=== PATIENT | female | born 1950 | race Caucasian/White ===

== ENCOUNTER 2022-12-12 09:28 | Outpatient (OUT) | payer MEDICARE, OTHER, SELFPAY ==
--- NOTE | 2022-12-12 | XR_ITS ---
The [address] [address] Patient Name: SANDOR DE LA ROSA MRN: [id number] date: 1950 Sex: F Assigned Patient Location: [facility] Current Patient Location: Accession/Order Number: [id number] Exam Date: 12/12/2022 09:38 Report Date: 12/13/2022 07:45 At the request of: YAZAN ZURITA Procedure: XR foot RT min 3V PROCEDURE: XR foot RT min 3V HISTORY: RIGHT FOOT PAIN COMPARISON: XR foot right 07/18/2022 FINDINGS: BONES:Mechanical fusion of first metatarsophalangeal joints and medial midfoot without evidence of hardware fracture or loosening. Prior fifth metatarsal bunionectomy. Calcaneal plantar spurring and flattening of plantar arch. SOFT TISSUES:No visible soft tissue swelling. EFFUSION:None visible. OTHER: Negative. XR/XR foot RT min 3V IMPRESSION: 1. Stable surgical changes and degenerative changes. No appreciable hardware failure. Electronically authenticated by: AISHWARYA STEIN Date: 12/13/2022 07:45
== END 2022-12-12 09:29 | disposition home or self-care (01) ==
LOC: RAD 09:31
PROVIDERS: Visit Provider Podiatrist Foot & Ankle Surgery
DX: M79.671 Pain in right foot (principal)
CPT/HCPCS: 73630

== ENCOUNTER 2023-06-04 09:47 | Outpatient (OUT) | payer MEDICARE, OTHER, SELFPAY ==
--- NOTE | 2023-06-04 | XR_ITS ---
[address] [address] Patient Name: SANDOR DE LA ROSA MRN: [id number] date: 1950 Sex: F Assigned Patient Location: Current Patient Location: Accession/Order Number: [id number] Exam Date: 06/04/2023 10:00 Report Date: 06/04/2023 14:52 At the request of: YAZAN ZURITA Procedure: XR foot RT min 3V PROCEDURE: XR foot RT min 3V COMPARISON: 04/14/2022 HISTORY: RIGHT FOOT PAIN FINDINGS: BONES:Stable fusion the first metatarsal phalangeal joint with a dorsal plate and screws. Shave osteotomy lateral head of fifth metatarsal. Midfoot forefoot fusion with 5 screws. No acute fracture, dislocation or mechanical failure. Stable degenerative changes with joint space narrowing and marginal osteophyte formation. Moderate enthesopathic spurring of the calcaneus at the Achilles and plantar insertions SOFT TISSUES:Negative. No visible soft tissue swelling. EFFUSION:None visible. OTHER: Negative. XR/XR foot RT min 3V IMPRESSION: Stable postsurgical and degenerative changes Electronically authenticated by: BARRETT VASQUEZ Date: 06/04/2023 14:52
--- OUTSIDE RECORDS SUMMARY | 2023-06-04 10:14 | XMS_ITS | CCD ---
Author Organization [facility] Care Team Providers Care Keno Dealer Name Role Phone Antonio Boss Jr. Primary Care Provider Kevon Queen Unavailable Ellyn Cerda Unavailable DO Chaitanya Boss Primary Care Provider GINO Zurita Attending Provider MD Kevon Queen Attending Provider [phone] MD Ra Brown Attending Provider DO Chaitanya Boss Primary Care Provider GINO Zurita Attending Provider [phone] DO Chaitanya Boss Primary Care Provider TELMA Curtis Attending Provider [phone] DO Shaka Watkins Attending Provider DR Josue BOSS Primary Care Unavailable MARIA INES HAND Admitting Unavailable MARIA INES HAND Attending Unavailable CHRISTINA, DR BARRETT Anna Consulting Unavailable MARIA INES HAND Consulting Unavailable KELSI ., DR BRENDAN Bruce Consulting Unavailable KELSI ., DR BRENDAN Bruce Attending Unavailable KELSI ., DR BRENDAN Bruce Admitting Unavailable DR Josue BOSS Primary Care Unavailable EMIL, DR AISHWARYA Dorsey Consulting Unavailable YAZAN ZURITA Consulting Unavailable ASTON .ELENA Consulting Unavailable ELENA CHENEY Consulting Unavailable JUNE BARBER Consulting Unavailable JADEN STORM Consulting Unavailable DR Josue BOSS Primary Care Unavailable YAZAN ZURITA Consulting Unavailable YAZAN ZURITA Attending Unavailable YAZAN ZURITA Admitting Unavailable DR Josue BOSS Primary Care Unavailable YAZAN ZURITA Consulting Unavailable HIGHLANDER, YAZAN Chin Attending Unavailable HIGHLANDER, YAZAN Chin Admitting Unavailable GONZALESAILEEN Consulting Unavailable KAFTAN, DR Josue LEACH Primary Care Unavailable HIGHLANDER, YAZAN Chin Attending Unavailable HIGHLANDER, YAZAN Chin Admitting Unavailable KAFTAN, DR Josue LEACH Primary Care Unavailable PEACE, MARIA INES Attending Unavailable PEACE, MARIA INES Admitting Unavailable ZIEBER, DR AISHWARYA Dorsey Consulting Unavailable PEACE, MARIA INES Consulting Unavailable KAFTAN, DR Josue LEACH Primary Care Unavailable PEACE, MARIA INES Attending Unavailable PEACE, MARIA INES Admitting Unavailable ZIEBER, DR AISHWARYA Dorsey Consulting Unavailable PEACE, MARIA INES Consulting Unavailable KAFTAN, DR Josue LEACH Primary Care Unavailable HIGHLANDER, YAZAN Chin Attending Unavailable HIGHLANDER, YAZAN Chin Admitting Unavailable WEST, DR BARRETT Anna Consulting Unavailable HIGHLANDER, YAZAN Chin Consulting Unavailable ZIEBER, DR AISHWARYA Dorsey Consulting Unavailable KAFTAN, DR Josue LEACH Primary Care Unavailable HIGHLANDER, YAZAN Chin Attending Unavailable HIGHLANDER, YAZAN Chin Admitting Unavailable HIGHLANDER, YAZAN Chin Consulting Unavailable KAFTAN, DR Josue LEACH Primary Care Unavailable HIGHLANDER, YAZAN Chin Consulting Unavailable HIGHLANDER, YAZAN Chin Attending Unavailable HIGHLANDER, YAZAN Chin Admitting Unavailable KAJosue TEJADA Primary Care Physician Bishnu June A Referring Unavailable Brown, Bishnu A Admitting Unavailable Brown, Bishnu A Attending Unavailable Brown, Bishnu A Referring Unavailable Brown, Bishnu A Admitting Unavailable Brown, Bishnu A Attending Unavailable Kaftan Antonio FONTANA Primary Care Provider Antonio Boss DO Unavailable BISHNU JUNE Attending Unavailable BROWN, BISHNU A Referring Unavailable [place] PEQUOT, ANGELITA Flores Attending Unavail able BROWN, BISHNU A Referring Unavailable [place], ANGELITA Flores Attending Unavail able BROWN, BISHNU A Referring Unavailable [place], ANGELITA Flores Attending Unavail able BROWN, BISHNU A Referring Unavailable [place], ANGELITA Flores Attending Unavail able BROWN, BISHNU A Referring Unavailable [place], ANGELITA Flores Attending Unavail able BROWN, BISHNU A Referring Unavailable HAO SAUER Attending Unavailable BROWN, BISHNU A Referring Unavailable [place]OT, ANGELITA Flores Attending Unavail able BROWN, BISHNU A Referring Unavailable BROWN, BISHNU A Referring Unavailable BROWN, BISHNU A Attending Unavailable [place]QUOT, ANGELITA Flores Attending Unavail able BROWN, BISHNU A Referring Unavailable [place]OT, ANGELITA L Attending Unavail able BROWN, BISHNU A Referring Unavailable [place]OT, ANGELITA L Attending Unavail able BROWN, BISHNU A Referring Unavailable BROWN, BISHNU A Attending Unavailable [place]OT, ANGELITA L Attending Unavail able BROWN, BISHNU A Referring Unavailable [place]OT, ANGELITA L Attending Unavail able BROWN, BISHNU A Referring Unavailable [place]OT, ANGELITA L Attending Unavail able BROWN, BISHNU A Referring Unavailable [place]OT, ANGELITA L Attending Unavail able BROWN, BISHNU A Referring Unavailable [place]OT, ANGELITA L Attending Unavail able BROWN, BISHNU A Referring Unavailable [place]OT, ANGELITA L Attending Unavail able BROWN, BISHNU A Referring Unavailable [place]QUOT, ANGELITA L Attending Unavail able BROWN, BISHNU A Referring Unavailable VISCI, SHAKA A Attending Unavailable BROWN, BISHNU A Referring Unavailable BROWN, BISHNU A Attending Unavailable BROWN, BISHNU A Referring Unavailable Chaitanya Boss Primary Care Unavailable Visci, Shaka Attending Unavailable Visci, Shaka Admitting Unavailable Allergies Allergy Classification Reported Allergen(s) Allergy Type Date of Onset Reaction(s) Facility (15 sources) Adhesive agent; Translations: [Adhesive] Propensity to adverse reactions 1 Unknown, Unknown Reaction [facility] (8 sources) Penicillin Drug Allergy Unknown [employer] Other (12 sources) Penicillins; Translations: [penicillins] Allergy to substance 2 Unknown (qualifier value), Unknown [facility] (1 source) Penicillin Drug Allergy [facility] (2 sources) Adhesive bandage; Translations: [Adhesive Bandage] Drug allergy rash [facility] (4 sources) Wound Dressing Adhesive Drug Allergy 2 Unknown [facility] Medications Current Medications Medication Drug Class(es) Dates Sig (Normalized) Sig (Original) 5-HT 100mg (1 source) Start: 06-07-2015 take 5 tablets by mouth once daily 5-HT 100mg 5-HT 100mg, 1 tab, Oral, Daily Start Date: 06/07/15 Status: Ordered Aleve Caplet 220 mg oral tablet (1 source) Start: 06-07-2015 take 1 tablet by mouth every eight hours as needed for pain Alezhang Caplet 220 mg oral tablet 220 mg = 1 tab(s), Oral, q8hr, PRN as needed for inflammation, Refills(s) 0, Pain Start Date: 06/07/15 Status: Ordered ascorbic acid 500 mg oral tablet (12 sources) Vitamin C Start: 11-07-2021 take 2 tablets by mouth once daily Ascorbic Acid (Vitamin C) (Vitamin C) 500 mg Tablet Active 1000 MG PO Daily November 07, 2021 12:00am Vitamin C Active busPIRone hydrochloride 15 mg oral tablet (20 sources) Start: 12-07-2020 take 1 tablet by mouth twice daily busPIRone 15 mg Tab 15 mg = 1 tab(s), Oral, BID, Refills(s) 0, Depression Start Date: 01/17/23 Status: Ordered Start: 08-20-2018 take 15 mg by mouth twice randell y Buspirone Active 15 MG PO Twice daily August 20, 2018 12:00am Start: 08-18-2018 take 1 tablet by drew th every eight hours busPIRone HCl 5 MG 1 tablet Orally Three times a day for 90 days Aug, Active Calcium (5 sources) Phosphate Binder, Calcium Start: 12-22-2020 take 1200 mg by mouth once daily Calcium Active 1200 MG PO Daily December 22, 2020 12:00am Start: 12-22-2020 take 600 mg by mouth once randell y Calcium Active 600 MG PO Daily December 22, 2020 12:00am celecoxib 100 mg oral capsule (4 sources) Nonsteroidal Anti-inflammatory Drug Start: 03-11-2023 End: 06-09-2023 take 1 capsule by mouth in the morning for pain celecoxib (CeleBREX) 100 MG capsule Indications: Status post knee replacement, unspecified laterality Take 1 capsule (100 mg) by mouth in the morning and 1 capsule (100 mg) before bedtime. Take as needed for pain. 60 capsule 2 03/11/2023 06/09/2023 Active Chondroitin Sulfates / Glucosamine (2 sources) Start: 06-07-2015 take 1 tablet by mouth twice daily Chondroitin-Gluco samine oral tablet 1 tab, Oral, BID, Refill(s) 0, Inflammation Start Date: 06/07/15 Status: Ordered Start: 11-14-2010 End: 04-17-2013 Aowr-Leak-DTV#[id number]-B or (OSTEO BI-FLEX) 750-625-30 mg ORAL Tab Take by mouth. 0 11/14/2010 04/17/2013 Discontinued (Changing Therapy/Dosage Form) Comment on above: Take by mouth. famotidine 20 mg oral tablet (20 sources) Histamine-2 Receptor Antagonist Start: 03-18-2023 famotidine (Pepcid) 20 MG tablet Indications: Gastroesophageal reflux disease with esophagitis without hemorrhage TAKE 1 TABLET TWICE A DAY 180 tablet 3 03/18/2023 Active Start: 01-17-2023 take 1 tablet by drew th twice daily famotidine 20 mg Tab 20 mg = 1 tab(s), Oral, BID, Refills(s) 0, Control of stomach acid Start Date: 01/17/23 Status: Ordered Start: 04-16-2019 take 20 mg by mouth twice randell y Famotidine Active 20 MG PO Twice daily April 16, 2019 1:00am Start: 04-16-2019 Famotidine Act rosendo 20 MG PO As Directed April 16, 2019 1:00am Start: 12-01-2016 End: 02-17-2018 take 20 mg by mouth once daily Famotidine Discontinued 20 MG PO Daily December 01, 2016 12:00am February 17, 2018 5:41pm gabapentin 300 mg oral capsule (7 sources) Anti-epileptic Agent Start: 02-25-2023 take 1 capsule by mouth at bedtime gabapentin (Neurontin) 300 MG capsule Indications: Status post total knee replacement, unspecified laterality Take 1 capsule (300 mg) by mouth at bedtime 30 capsule 0 03/21/2023 Active Ginkgo-Choline Bitartrate (Brainstrong Memory Support) 120 mg- 110 mg Tablet (4 sources) Start: 11-07-2021 take 1 tablet by mouth once daily Ginkgo-Choline Bitartrate (Brainstrong Memory Support) 120 mg- 110 mg Tablet Active 1 TAB PO Daily November 07, 2021 12:00am glucosamine sulfate 500 mg oral tablet (6 sources) Start: 12-01-2016 take 3 tablets by mouth once daily in the morning Glucosamine Sulfate (Glucosamine) 500 mg Tablet Active 1500 MG PO Every morning December 01, 2016 12:00am Start: 04-17-2013 take 2 capsules by m outh twice daily Glucosamine Sulfate 1,000 mg cap Take 2 capsules by mouth twice daily. 0 04/17/2013 Active Comment on above: Take 2 capsules by m outh twice daily. Glucosamine Chond Complex/MSM - (8 sources) Glucosamine Evangelista d Complex/MSM - as directed Orally Active 12 hr guaiFENesin 600 mg extended release oral tablet (5 sources) Start: 04-04-2018 take 1 tablet by mouth every twelve hours, then take 1 tablet by mouth every twelve hours Guaifenesin (Mucinex) 600 mg Tablet Extended Release 12hr Active 600 MG PO Q12H April 04, 2018 1:00am melatonin 5 mg oral tablet (2 sources) Start: 01-17-2023 take 1 tablet by mouth once daily at bedtime as needed melatonin 5 mg oral tablet 5 mg = 1 tab(s), Oral, Once a day (at bedtime), PRN for insomnia, # 60 tab(s), Refills(s) 0 Start Date: 01/17/23 Status: Ordered End: 05-30-2012 take 1 tablet by mouth once daily at bedtime melatonin 3 mg ORAL Tab Take 3 mg by mouth daily at bedtime. 0 05/30/2012 Discontinued (Course of therapy completed) Comment on above: Take 3 mg by mouth d aily at bedtime. meloxicam 15 mg oral tablet (20 sources) Nonsteroidal Anti-inflammatory Drug Start: 10-23-2019 take 15 mg by mouth once daily Meloxicam Active 15 MG PO Daily October 23, 2019 12:00am Start: 04-17-2013 End: 05-01-2019 take 15 mg by mouth once daily in the morning Meloxicam Discontinued 15 MG PO Every morning March 04, 2018 1:00am May 01, 2019 7:46am Start: 11-14-2010 End: 04-17-2013 take 1 tablet by mouth once daily meloxicam (MOBIC) 7.5 mg ORAL tablet Take 1 tablet by mouth once daily. 0 11/14/2010 04/17/2013 Discontinued (Changing Therapy/Dosage Form) Comment on above: Take 1 tablet by drew th once daily. Multivitamin Adult - (8 sources) Multivitamin Josué lt - as directed Orally Active Multivitamin preparation (5 sources) Start: 12-02-19 take 1 tablet by mouth once daily in the morning Multivitamin Active 1 TAB PO Every morning December 01, 2016 12:00am Multivitamins and Minerals (1 source) Start: 06-07-19 take 1 tablet by mouth once daily Multivitamins and Minerals 1 tab, Oral, Daily, Refill(s) 0, Prophylaxis Start Date: 06/07/15 Status: Ordered 24 hr oxybutynin chloride 15 mg extended release oral tablet (12 sources) Cholinergic Muscarinic Antagonist Start: 03-07-19 oxybutynin XL (Ditropan-XL) 15 MG 24 hr tablet Indications: OAB (overactive bladder) TAKE 1 TABLET DAILY 90 tablet 0 03/07/2023 Active Start: 11-14-2010 End: 11-07-2021 take 1 tablet by mouth once daily oxybutynin 15 mg ER Tab 15 mg = 1 tab(s), Oral, Daily, Refills(s) 0, Bladder problems Start Date: 06/07/15 Status: Ordered Comment on above: Take 1 tablet by drew once daily. traMADol hydrochloride 50 mg oral tablet (1 source) Opioid Agonist Start: 01-17-2023 take 1 tablet by mouth every six hours as needed for pain traMADOL 50 mg Tab 50 mg = 1 tab(s), Oral, q6hr, PRN as needed for pain, Refills(s) 0 Start Date: 01/17/23 Status: Ordered Vitamin D3 (1 source) Start: 06-07-2015 take 3000 [IU] by mouth once daily Vitamin D3 3,000 unit(s), Oral, Daily, Refills(s) 0, Prophylaxis Start Date: 06/07/15 Status: Ordered Zinc (13 sources) Start: 11-07-2021 take 50 mg by mouth once daily Zinc Active 50 MG PO Daily November 07, 2021 12:00am zinc 50 MG table t 1 (one) time each day at the same time. 0 Active Zinc Active zinc gluconate 50 mg oral tablet (1 source) Start: 01-17-2023 zinc gluconate 50 mg oral tablet See Instructions, Refills(s) 0, Prophylaxis Start Date: 01/17/23 Status: Ordered Completed/Discontinued Medications Medication Drug Class(es) Dates Sig (Normalized) Sig (Original) 5-hydroxytryptophan 100 mg oral capsule (5 sources) Start: 06-09-2018 End: 10-17-2018 take 5 capsules by mouth once daily in the morning 5-Hydroxytryptopha n (5-Htp) (5-Htp) 100 mg Capsule Discontinued 1 TAB PO Every morning June 09, 2018 12:00am October 17, 2018 1:27pm 5hpt (5 sources) Start: 12-01-2016 End: 03-04-2018 take 1 tablet by mouth once daily 5hpt Discontinued 1 TAB PO Daily December 01, 2016 12:00am March 04, 2018 11:42am acetaminophen 325 mg oral capsule (5 sources) Start: 05-29-2018 End: 11-04-2018 Acetaminophen (Tylenol) 325 mg Capsule Discontinued 500 MG PO Q6H May 29, 2018 12:00am November 04, 2018 12:17pm acetaminophen 500 mg / caffeine 65 mg disintegrating oral tablet (2 sources) Central Nervous System Stimulant, Methylxanthine Start: 11-14-2010 Acetaminophen-Caff eine (EXCEDRIN) 500-65 mg ORAL TbDL Take by mouth. 0 11/14/2010 Active Comment on above: Take by mouth. acetaminophen 325 mg / HYDROcodone bitartrate 5 mg oral tablet (1 source) Opioid Agonist Start: 01-23-2013 End: 05-31-2014 take 1 tablet by mouth every six hours as needed HYDROcodone-acetam inophen 5-325 mg per tablet Take 1 tablet by mouth every 6 hours as needed. 80 tablet 0 01/23/2013 05/31/2014 Discontinued (Course of therapy completed) Comment on above: Take 1 tablet by drew every 6 hours as needed. acetaminophen 325 mg / oxyCODONE hydrochloride 5 mg oral tablet (13 sources) Opioid Agonist Start: 05-01-2019 End: 10-28-2019 take 1-2 tablets by mouth every six hours as needed for pain Oxycodone-Acetamin ophen (Percocet) 5-325 mg tablet Discontinued 1 TAB PO Q6H 07 07May 01, 2019 October 28, 2019 8:06am May take 1-2 tabs q 6 hours prn pain Start: 08-26-2018 End: 10-17-2018 take 1-2 tablets by mouth every six hours as needed for pain Oxycodone-Acetaminophen (Percocet) 5-325 mg tablet Discontinued 1 - 2 TAB PO Q6H 10 2 August 26, 2018 October 17, 2018 1:28pm May take 1-2 tabs q 6 hours prn pain Start: 05-01-2013 End: 05-31-2014 take 1-2 tablets by mouth every six hours as needed oxyCODONE-acetaminophen (PERCOCET) 5-325 mg tablet Take 1-2 tablets by mouth every 6 hours as needed. 90 tablet 0 05/01/2013 05/31/2014 Discontinued (Course of therapy completed) Start: 04-23-2013 End: 05-01-2013 take 1-2 tablets by mouth every four hours as needed oxyCODONE-acetaminophen (PERCOCET) 5-325 mg tablet Take 1-2 tablets by mouth every 4 hours as needed. 50 tablet 0 04/23/2013 05/01/2013 Discontinued Start: 04-05-2011 End: 04-27-2011 take 1 tablet by mouth every four hours as needed oxyCODONE-acetaminophen (PERCOCET) 5-325 mg ORAL tablet Take 1 tablet by mouth every 4 hours as needed. for pain. 90 tablet 0 04/05/2011 04/27/2011 Discontinued (Course of therapy completed) Comment on above: Take 1 tablet by drew th every 4 hours as needed. for pain. Take 1-2 tablets by mouth every 4 hours as needed. Take 1-2 tablets by mouth every 6 hours as needed. acetaminophen 325 mg / traMADol hydrochloride 37.5 mg oral tablet (1 source) Opioid Agonist End: 05-31-19 13 take 1 tablet by mouth every six hours as needed tramadol-acetaminoph en 37.5-325 mg ORAL per tablet Take 1 tablet by mouth every 6 hours as needed. 0 05/30/2012 Discontinued (Discontinued by Patient) Comment on above: Take 1 tablet by drew th every 6 hours as needed. aspirin 325 mg oral tablet (2 sources) Platelet Aggregation Inhibitor, Nonsteroidal Anti-inflammatory Drug Start: 04-24-19 14 End: 05-15-19 14 take 1 tablet by mouth once daily aspirin 325 mg tablet Take 1 tablet by mouth once daily for 21 days. 21 tablet 0 04/23/2013 05/14/2013 Start: 04-05-2011 End: 05-30-2012 take 1 tablet by mouth every twelve hours aspirin 325 mg ORAL tablet Take 1 tablet by mouth every 12 hours. 60 tablet 0 04/05/2011 05/30/2012 Discontinued (Course of therapy completed) Comment on above: Take 1 tablet by drew th every 12 hours. Take 1 tablet by drew th once daily for 21 days. BIOFLAV/MV-MN/SOYB/EVEP R/HRB32 (WOMENS MENOPAUSE JOYCE BLAIRE ORAL) (2 sources) BIOFLAV/MV-MN/SO YB/MIR ME/HRB32 (WOMENS MENOPAUSE JOYCE BLAIRE ORAL) Take by mouth once daily. 0 Active Comment on above: Take by mouth once d aily. cetirizine hydrochloride 10 mg oral tablet (1 source) Histamine-1 Receptor Antagonist Start: 04-17-19 14 End: 06-01-19 15 take 1 tablet by mouth once daily cetirizine 10 mg tablet Take 1 tablet by mouth once daily. 0 04/17/2013 05/31/2014 Discontinued (Course of therapy completed) Comment on above: Take 1 tablet by drew th once daily. choline salicylate 293 mg / magnesium salicylate 362 mg oral tablet (1 source) Start: 11-15-19 11 End: 04-17-19 14 take 1 tablet by mouth twice daily choline magnesium trisalicylate 500 mg ORAL tablet Take 1 tablet by mouth twice daily. 0 11/14/2010 04/17/2013 Discontinued (Discontinued by Patient) Comment on above: Take 1 tablet by drew th twice daily. Cognitum (5 sources) Start: 06-10-19 19 End: 08-16-19 19 take 1 tablet by mouth once daily Cognitum Discontinued 1 TAB PO Daily June 09, 2018 12:00am August 15, 2018 10:05am Cognium (5 sources) Start: 08-16-19 19 End: 11-05-19 19 take 1 tablet by mouth twice daily Cognium Discontinued 1 TAB PO Twice daily August 15, 2018 12:00am November 04, 2018 12:17pm COMPOUNDED PRESCRIPTION (1 source) Start: 04-17-19 14 take 1 tablet by mouth three times daily COMPOUNDED PRESCRIPTION Take 1 tablet by mouth three times daily. Focus Factor (for memory and concentration) 0 04/17/2013 Active Comment on above: Take 1 tablet by drew th three times daily. Focus Factor (for memory and concentration) diphenhydrAMINE hydrochloride 25 mg oral tablet (5 sources) Histamine-1 Receptor Antagonist Start: 12-02-19 17 End: 10-18-19 19 take 1 tablet by mouth every eight hours Diphenhydramine Hcl (Benadryl Allergy) 25 mg Tablet Discontinued 25 MG PO Q8H December 01, 2016 12:00am October 17, 2018 1:27pm docusate sodium 100 mg oral capsule (2 sources) Start: 04-17-19 14 End: 06-01-19 15 take 1 capsule by mouth twice daily docusate sodium (COLACE) 100 mg capsule Take 1 capsule by mouth twice daily. 0 04/17/2013 05/31/2014 Discontinued (Course of therapy completed) Start: 04-05-2011 End: 05-30-2012 take 1 capsule by mouth twice daily docusate sodium (COLACE) 100 mg ORAL capsule Take 1 capsule by mouth twice daily. 60 capsule 0 04/05/2011 05/30/2012 Discontinued (Course of therapy completed) Comment on above: Take 1 capsule by mo uth twice daily. estrogens, conjugated (long-term) 0.625 mg/ml vaginal cream (5 sources) Estrogen Start: 04-16-19 End: 05-05-19 21 Conjugated Estrogens Discontinued 0.625 MG VAGINAL Twice a Week April 16, 2019 1:00am May 04, 2020 10:14am Fish Oil-DHA-EPA (FISH OIL) 1,200-144-216 mg ORAL Cap (1 source) Start: 11-15-19 11 End: 04-17-19 14 Fish Oil-DHA-EPA (FISH OIL) 1,200-144-216 mg ORAL Cap Take 1 capsule by mouth once daily. 0 11/14/2010 04/17/2013 Discontinued (Discontinued by Patient) Comment on above: Take 1 capsule by mo ut once daily. ibuprofen 600 mg oral tablet (5 sources) Nonsteroidal Anti-inflammatory Drug Start: 05-01-19 End: 10-28-19 20 Ibuprofen Discontinued 600 MG PO Every 6 hours May 01, 2019 12:00am October 28, 2019 8:07am do not exceed 4 doses in a 24 hour period lansoprazole 30 mg delayed release oral capsule (5 sources) Proton Pump Inhibitor Start: 04-30-19 19 End: 05-05-19 21 take 1 tablet by mouth twice daily Lansoprazole Discontinued 1 TAB PO Twice daily April 29, 2018 12:00am March 17th, 2021 10:15am linseed oil 1000 mg oral capsule (1 source) Start: 04-17-19 14 End: 06-01-19 take 1 capsule by mouth once daily Flaxseed Oil 1,000 mg cap Take 1 capsule by mouth once daily. 0 04/17/2013 05/31/2014 Discontinued (Course of therapy completed) Comment on above: Take 1 capsule by mo [facility] once daily. Miscellaneous Medical Supply (5 sources) Start: 04-16-19 End: 11-08-19 Miscellaneous Medical Supply Discontinued 1000 MG MISCELLANE Every morning April 16, 2019 1:00am November 07, 2021 7:17am Start: 04-16-2019 Miscellaneous Medical Supply Active 1000 MG MISCELLANE Every morning April 16, 2019 1:00am multivitamin ORAL tablet (2 sources) Start: 11-14-2010 take 1 tablet by mouth once daily multivitamin ORAL tablet Take 1 tablet by mouth once daily. 0 11/14/2010 Active Comment on above: Take 1 tablet by [facility] once daily. Mv,Ca,Gux-Bq-Huetij No.157 (Menopause Supplement) 400 mcg Tablet (10 sources) Start: 06-09-2018 End: 11-04-2018 take 1 tablet by mouth once daily Mv,Ca,Kxm-Gq-Vubukz No.157 (Menopause Supplement) 400 mcg Tablet Discontinued 1 TAB PO Daily June 09, 2018 12:00am November 04, 2018 12:17pm Start: 12-01-2016 End: 03-04-2018 take 1 tablet by mouth once daily Mv,Ca,Eaz-Ec-Wxhsmj No.157 (Menopause Supplement) 400 mcg Tablet Discontinued 1 TAB PO Daily December 01, 2016 12:00am March 04, 2018 11:42am MV,Ca,Xqd-JH-Fgiipx No.159 (ESTROVEN REGULAR STRENGTH) 400 mcg ORAL Tab (2 sources) Start: 11-14-2010 MV,Ca,Nsy-WB-Qdfghh No.159 (ESTROVEN REGULAR STRENGTH) 400 mcg ORAL Tab Take by mouth. 0 11/14/2010 Active Comment on above: Take by mouth. naproxen 500 mg oral tablet (10 sources) Nonsteroidal Anti-inflammator y Drug Start: 04-04-2018 End: 05-29-2018 take 500 mg by mouth every twelve hours Naproxen Discontinued 500 MG PO Q12H April 04, 2018 1:00am May 29, 2018 2:00pm Start: 03-04-2018 End: 03-14-2018 take 1 tablet by mouth twice daily Naproxen Discontinued 1 TAB PO Twice daily March 04, 2018 1:00am March 14, 2018 11:07am 12 hr oxyCODONE hydrochloride 10 mg extended release oral tablet (2 sources) Opioid Agonist Start: 04-23-2013 End: 05-03-2013 take 1 tablet by mouth every twelve hours oxyCODONE ER (OXYCONTIN) 10 mg Tb12 Take 1 tablet by mouth every 12 hours for 10 days. 20 tablet 0 04/23/2013 05/03/2013 Start: 04-05-2011 End: 04-27-2011 take 1 tablet by mouth twice daily for pain oxyCODONE ER (OXYCONTIN) 10 mg ORAL Tb12 Take 1 tablet by mouth twice daily. for pain. 30 tablet 0 04/05/2011 04/27/2011 Discontinued (Course of therapy completed) Comment on above: Take 1 tablet by drew th twice daily. for pain. Take 1 tablet by drew th every 12 hours for 10 days. pantoprazole 40 mg delayed release oral tablet (1 source) Proton Pump Inhibitor Start: 4 take 1 tablet by mouth once daily PANTOPRAZOLE 40 mg tablet Take 1 tablet by mouth once daily. 0 03/20/2013 Active Comment on above: Take 1 tablet by drew th once daily. predniSONE 10 mg oral tablet (5 sources) Start: 8 End: 9 take 30 mg by mouth twice daily Prednisone Discontinued 30 MG PO Twice daily 17 07February 17, 2018 1:00am February 22, 2018 1:02am raNITIdine 300 mg oral capsule (11 sources) Histamine-2 Receptor Antagonist Start: 9 End: 0 take 300 mg by mouth once daily at bedtime Ranitidine Hcl Discontinued 300 MG PO Daily at bedtime May 27, 2018 12:00am April 16, 2019 11:21am Start: 12-01-2016 End: 05-27-2018 take 150 mg by mouth once daily at bedtime Ranitidine Hcl Discontinued 150 MG PO Daily at bedtime December 01, 2016 12:00am May 27, 2018 2:19pm Start: 01-31-2013 take 1 tablet by drew th once daily at bedtime RANITIDINE HCL 300 mg tablet Take 1 tablet by mouth daily at bedtime. 0 01/31/2013 Active Comment on above: Take 1 tablet by drew th daily at bedtime. sulfamethoxazole 800 mg / trimethoprim 160 mg oral tablet (5 sources) Dihydrofolate Reductase Inhibitor Antibacterial, Sulfonamide Antimicrobial Start: 019 End: 019 take 1 tablet by mouth twice daily Sulfamethoxazole-Tr imethoprim (Bactrim Ds) 800-160 mg tablet Discontinued 1 TAB PO Twice daily 14 August 26, 2018 12:00am October 17, 2018 1:28pm Triamcinolone (4 sources) Corticosteroid Start: Kenalog -40 mg Sep, 40 mg Problems Active Problems Problem Classification Problem Date Documented Da te Episodic/Chronic Abdominal hernia (7 sources) Hiatal hernia; Translations: [Diaphragmatic hernia without obstruction or gangrene] Onset: 2 Resolved: 2 Episodic Acquired foot deformities (2 sources) Hallux valgus (acquired), right foot; Translations: [Other hammer toe(s) (acquired), right foot] Onset: 2 Chronic Digestive congenital anomalies (7 sources) Terminal esophageal web; Translations: [Esophageal web] Onset: 2 Resolved: 2 Chronic Disorders of lipid metabolism (5 sources) Hyperlipidemia, unspecified; Translations: [Mixed hyperlipidemia] Onset: 2 07-10-2022 Chronic Esophageal disorders (20 sources) Gastroesophageal reflux disease; Translations: [Gastro-esophageal reflux disease without esophagitis] Onset: 4 Resolved: 2 04-17-2013 Chronic Genitourinary symptoms and ill-defined conditions (16 sources) Urinary incontinence; Translations: [Unspecified urinary incontinence] Onset: 4 04-17-2013 Chronic Gout and other crystal arthropathies (4 sources) Chondrocalcinosis of joint of right knee; Translations: [Other chondrocalcinosis, right knee] Onset: 3 07-20-2022 Chronic Immunizations and screening for infectious disease (2 sources) Encounter for immunization Onset: 1 Resolved: 1 Episodic Osteoarthritis (20 sources) Osteoarthritis of foot joint; Translations: [Primary osteoarthritis, unspecified ankle and foot] Onset: 2 03-23-2011 Chronic Other connective tissue disease (2 sources) History of total knee arthroplasty; Translations: [Presence of right artificial knee joint] 04-01-2023 Chronic Other connective tissue disease (1 source) Impingement syndrome of shoulder region 06-07-2015 Episodic Other diseases of bladder and urethra (1 source) Bladder muscle dysfunction - overactive 06-07-2015 Chronic Other gastrointestinal disorders (4 sources) Dysphagia, unspecified Onset: 2 Resolved: 2 Episodic Other nervous system disorders (12 sources) Chronic pain; Translations: [Other chronic pain] Onset: 3 07-10-2022 Chronic Other non-traumatic joint disorders (5 sources) Pain in right knee; Translations: [Right knee pain] 12-01-2016 Episodic Other screening for suspected conditions (not mental disorders or infectious disease) (1 source) Encounter for screening mammogram for malignant neoplasm of breast; Translations: [Encounter for screening mammogram for malignant neoplasm of breast] Onset: 4 Episodic Other upper respiratory disease (4 sources) Allergic rhinitis; Translations: [Allergic rhinitis, unspecified] Onset: 3 07-10-2022 Chronic Other upper respiratory infections (4 sources) Chronic sinusitis; Translations: [Chronic sinusitis, unspecified] Onset: 3 07-10-2022 Chronic Poisoning by nonmedicinal substances (5 sources) Wasp sting; Translations: [Toxic effect of venom of wasps, accidental (unintentional), initial encounter] 10-17-2018 Episodic Prolapse of female genital organs (18 sources) Third degree uterine prolapse; Translations: [Complete uterovaginal prolapse] Onset: 3 05-01-2019 Chronic Residual codes; unclassified (1 source) Menopause present 06-07-2015 Episodic Spondylosis; intervertebral disc disorders; other back problems (20 sources) Solitary sacroiliitis; Translations: [Sacroiliitis, not elsewhere classified] Chronic Thyroid disorders (6 sources) Hypothyroidism; Translations: [Hypothyroidism, unspecified] Onset: 4 04-17-2013 Chronic Unclassified (1 source) CONTACT W/AND (SUSP) EXPOS COVID-19; Translations: [CONTACT W/AND (SUSP) EXPOS COVID-19] Onset: 2 Past or Other Problems Problem Classification Problem Date Documented Da te Episodic/Chronic Acquired foot deformities (3 sources) Other acquired deformities of right foot; Translations: [Other deformities of toe(s) (acquired), right foot] Onset: 12-25-2021 Episodic Cardiac dysrhythmias (6 sources) Bradycardia; Translations: [Bradycardia, unspecified] Onset: 04-17-2013 04-17-2013 Episodic Malaise and fatigue (4 sources) Fatigue; Translations: [Other fatigue] Onset: 07-10-2022 07-10-2022 Episodic Menopausal disorders (4 sources) Atrophic vaginitis; Translations: [Postmenopausal atrophic vaginitis] Onset: 07-10-2022 Resolved: 08-31-2022 08-31-2022 Chronic Other acquired deformities (1 source) Other specified acquired deformities of right lower leg; Translations: [OTH SPEC ACQ DEFORMITIES RT LOW LEG] Onset: 12-25-2021 Episodic Other aftercare (1 source) Other chcf (current) drug therapy; Translations: [OTH POTTERY DECORATOR CURRENT DRUG THERAPY] Onset: 12-25-2021 Episodic Other circulatory disease (4 sources) Clearing throat - hawking; Translations: [Other specified symptoms and signs involving the circulatory and respiratory systems] Onset: 07-10-2022 07-10-2022 Episodic Other connective tissue disease (5 sources) Pain in right foot; Translations: [PAIN IN RIGHT FOOT] Onset: 12-25-2021 Episodic Other connective tissue disease (1 source) Arthrodesis status; Translations: [ARTHRODESIS STATUS] Onset: 03-01-2022 Episodic Other female genital disorders (4 sources) Pain in female genitalia on intercourse; Translations: [Unspecified dyspareunia] Onset: 07-10-2022 Resolved: 08-31-2022 08-31-2022 Chronic Other female genital disorders (4 sources) Stenosis of vagina; 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 [place] [address] Mammography Report Signed Patient: Chely De La Rosa MR#: [id number] : 1950 Acct:[id number] Age/Sex: 73 / F ADM Date: 05/17/23 Loc: [place] Room: Type: [facility] Attending Dr: Shaka Watkins DO Copies to: Josue Boss Jr, DO Shaka Watkins DO Ordering Provider: Shaka Watkins DO Date of Service: 05/17/23 MM/MM screening mammo BI w/CAD: SCREENING CLINICAL DATA: Screening for malignancy. BILATERAL SCREENING MAMMOGRAMS - FULL FIELD DIGITAL WITH TOMOSYNTHESIS AND CAD Tomosynthesis craniocaudal and mediolateral oblique views of both breasts were obtained using low- dose digital technique. Comparison is made to prior studies from April 06, 2020 through May 11, 2022. This examination was reviewed with the aid of CAD. There are scattered fibroglandular densities. A few benign and vascular calcifications are present. There are no developing masses, typically malignant calcifications or architectural distortion. There has been no significant interval change. MM/MM screening mammo BI w/CAD IMPRESSION: NO MAMMOGRAPHIC EVIDENCE OF MALIGNANCY. ROUTINE FOLLOW-UP IS RECOMMENDED IN ONE YEAR. RESULT CODE: 2 Benign Findings(s) DENSITY CODE: 2 (approximately 25-50% glandular) FOLLOW UP: 1YR The false-negative rate of mammography is approximately 10-percent. Management of a palpable abnormality must be based on clinical grounds. Patient was entered into a reminder system with a target due date for the next mammogram. Impression dictated by: Erica Pérez M.D.05/17/2023 3:05 PM Dictation Location: [facility] Transcribed By: CHASE 05/17/23 [id number] Dictated By: Erica Pérez MD 05/17/23 1440 Signed By: 05/17/23 1505 Normal [facility] IntraOperative Documentson 1 04-17-2022 IntraOperative Documents [id number] Normal [facility] Main OR Intraoperative Recor don 02-01-2023 Main OR Intraoperative Record IntraOp Document Type FT Summary Primary Physician: Bishnu June DO Finalized Date/Time: 02/01/23 12:54:21 Pt. Name: JENNIFER DE LA ROSAHUMAIRA Aragon/Sex: 1950 Female Med Rec #: [id number] Physician: Bishnu June DO Financial #: [id number] Pt. Type: A Room/Bed: [place] [address] Admit/Disch: 01/30/23 05:59:51 - 01/31/23 10:50:00 Institution: Case Times FT Entry 1 Patient Times In Room 01/30/23 08:54:00 Out Room 01/30/23 10:48:00 Procedure Times Start 01/30/23 09:31:00 Stop 01/30/23 10:38:00 Anesthesia Times Start 01/30/23 08:54:00 Stop 01/30/23 10:48:00 Block Timeout w01/30/23 08:16:00 Anesthesia Last Modified By: Juana Leal CST 02/01/23 12:54:18 General Comments: BLOCK DONE BY DR. SANTOS AT 0816, ASSISTED BY DR. SANTOS, HR= 72BPM, O2= 99% ON ROOM AIR; SPINAL DONE BY Rachana JEFFREY CRNA AT 0905 -Prateek HALEY RN 02/01/23 Chart opened to review and send charges LRoth CSFA Case Attendance FT Entry 1 Entry 2 Entry 3 Case Attendee Rachele MONTES, Bishnu Jacobsen DO, Jeff D Role Performed SEASONAL PACKAGE HANDLER Surgeon - Primary QUALITY CONTROL HEAD/SA Time In 01/30/23 08:54:00 01/30/23 08:54:00 01/30/23 08:54:00 Time Out 01/30/23 10:48:00 01/30/23 10:33:00 01/30/23 10:48:00 Procedure KNEE TOTAL ROBOT KNEE TOTAL ROBOT KNEE TOTAL ROBOT ARTHROPLASTY(Right) ARTHROPLASTY(Right) ARTHROPLASTY(Right) Comments Last Modified By: Catherine HALEY, Es Haley RN, sE Haley RN, Es James P 01/30/23 Erika P 01/30/23 Erika P 01/30/23 10:47:55 10:52:29 10:47:55 Entry 4 Entry 5 Entry 6 Case Attendee Catherine HALEY, Jarrod Szymanski CST, Maria Ines Xiao Role Performed Analysis Reporting Developer - Primary Scrub - Primary Staff - Other Time In 01/30/23 08:54:00 01/30/23 08:54:00 01/30/23 08:54:00 Time Out 01/30/23 10:48:00 01/30/23 10:29:00 01/30/23 10:48:00 Procedure KNEE TOTAL ROBOT KNEE TOTAL ROBOT KNEE TOTAL ROBOT ARTHROPLASTY(Right) ARTHROPLASTY(Right) ARTHROPLASTY(Right) Comments 2ND SCRUB Last Modified By: Catherine HALEY, Es Haley RN, Es Haley RN, Es James P 01/30/23 Erika P 01/30/23 Erika P 01/30/23 10:47:55 10:52:29 10:47:55 General Comments: EMILY MARTÍNEZ FOR CASE -VNehemiah HALEY RNpotato inspector Protocols FT Pre-Care Text: Implements protective measures prior to operative or invasive procedure, confirms identity before the operative or invasive procedure, verifies operative procedure, surgical site, and laterality Entry 1 Procedure(s) KNEE TOTAL ROBOT Patient Identity Birthday, Blood Band, ARTHROPLASTY(Right) Verified (select at ID Band Check, Patient least 2): Participation Consents / H and P Anesthesia Consent, Operative Site Present Verified HandP, Surgery/Procedure Marking Verified Consent, Transfusion Consent Surgical Site Yes Laterality Verified Yes Verified Procedure Verified Yes Correct Patient Yes Position Verified Availability Equipment, Implant, Prep Dry n/a Verified (If Medication Applicable) PreOp Antibiotic Yes Time Out Bishnu June DO, Given Participants Akanksha Jeffrey CRNA, Mohr, Jeff D, Catherine HALEY, Es Xiao, Jarrod Billings McClain CST, Maria Ines Claudio Time Out Complete 01/30/23 09:31:00 Outcomes Met? Yes Last Modified By: Es Haley RN 01/30/23 09:49:07 Post-Care Text: The patient is free from signs and symptoms of injury caused by extraneous objects Allergy Information FT Pre-Care Text: Verifies allergies Entry 1 Allergies Reviewed? Yes Allergies Reviewed Self/Patient With Outcomes Met? Yes Last Modified By: Es Haley RN 01/30/23 09:49:15 Post-Care Text: The patient received appropriate medication(s) safely administered during the perioperative period Surgical Procedures FT Entry 1 Procedure Description Procedure KNEE TOTAL ROBOT Modifiers Right ARTHROPLASTY Surgeon Description RIGHT TOTAL KNEE ARTHROPLASTY WITH ROBOTIC ASSIST Primary Procedure Yes Primary Surgeon Bishnu June DO Start 01/30/23 09:31:00 Stop 01/30/23 10:38:00 Anesthesia Type General Surgical Service Orthopedics Wound Class 1 - Clean Last Modified By: Juana Leal CST 02/01/23 12:50:02 General Case Data FT Pre-Care Text: Classifies surgical wound, implements aseptic technique, initiates traffic control Entry 1 Case Information OR OR 5 FT Case Level Level 6 Wound Class 1 - Clean Specialty Orthopedics ASA Class 2 Preop Diagnosis OSTEOARTHRITIS RIGHT Postop Same As Preop Yes KNEE Postop Diagnosis OSTEOARTHRITIS RIGHT Outcomes Met? Yes KNEE Last Modified By: Es Haley RN 01/30/23 09:49:35 Post-Care Text: The patient is free from signs and symptoms of infection Skin Assessment (Pre Procedure) FT Pre-Care Text: Implements protective measures to prevent skin/ tissue injury due to thermal or mechanical sources Evaluates for signs and symptoms of physical injury to skin and tissue Entry 1 Skin I (more content not included)... Normal [facility] Operative Reporton 3 Operative Report Patient: CHELY DE LA ROSA Age: 73 years Sex: Female : 1950 Associated Diagnoses: None Author: Tyler Santos Jr, DO Procedure Nerve Block Block Type: Adductor canal block. Laterality: Right. Informed consent for anesthesia management: Anesthesia options discussed including nerve block, Description of the procedure, risks, benefits, and alternatives was provided, The patient's questions were addressed. Time out: Confirmed correct patient, procedure and site. Time: Date/Time 01/30/2023 08:14:00. Indication: Block for postoperative pain management as requested by surgeon. Anesthesia Method: IV Sedation with monitored anesthesia care, The patient remained awake and able to interact in a meaningful way throughout the procedure. Preparation: The patient was placed in the following position Supine, Continuous pulse oximetry applied, Using maximal sterile barrier technique per current [facility] guidelines including hand hygeine, Guidance (Ultrasound used to identify anatomical landmarks, Using sterile gel and probe covers, Permanent image retained), The site was prepped with ChloraPrep. Procedure: Anesthetic Agent 20cc of 0.5% Ropivicaine with 4mg decadron, Needle was inserted without pain or parasthesia in the conscious patient, Number of attempts 1, Negative attempt at aspiration for blood, Medial and lateral spread of the anesthestic was observed, Periodic negative attempts at aspiration of blood were made as the local was injected, No pain or parathesia were elicited with injection of the anesthetic in the conscious patient, It was idetified that the correct anesthetic agent was administered to the correct site. Complications: The patient tolerated the procedure as expected. Normal [facility] Comment on above: Result Comment: Elec tronically Signed By: Tyler Santos Jr, DO\.br\Date and Time Signed: 02/01/23 09:46 EST Progress Note-Physicianon Progress Note-Physician Patient: CHELY DE LA ROSA Age: 73 years Sex: Female : 1950 Associated Diagnoses: None Author: Tyler Santos Jr, DO Preoperative Information Anesthesia Preop Info: Time patient last ate or drank 01/30/2023 00:00:00. Anesthesia history: Patient history: None. Family history+: None. Informed consent: Signed by patient. Re-evaluation prior to induction: Initial evaluation reviewed: No significant change. Review of Systems Eye: Negative except as documented in history of present illness. Ear/Nose/Mouth/Throat : Negative except as documented in history of present illness. Respiratory: Negative except as documented in history of present illness. Cardiovascular: Negative except as documented in history of present illness. Musculoskeletal: Negative except as documented in history of present illness. Neurologic: Negative except as documented in history of present illness. Health Status Allergies: Allergic Reactions (Selected) Severity Not Documented Adhesive Bandage- Rash. Penicillins- Unknown. Problem list: All Problems Menopause / SNOMED CT 092121404 / Confirmed Incontinence in female / SNOMED CT 35514819 / Confirmed Impingement syndrome of left shoulder / SNOMED CT 771557170 / Confirmed Ineffective esophageal motility / SNOMED CT 066336159 / Confirmed Overactive bladder / SNOMED CT 283332268 / Confirmed Histories Procedure history: Left shoulder arthroscopic rotator cuff repair on 06/23/2015 at 65 Years. Comments: 06/23/2015 19:59 NATALYA Walton RN, BSN, Donna Arthroscopic biceps tenodesis, Arthroscopic subacromilal decompression ,Extensive debridement Left shoulder glenoid labrum tear, dense subacronial bursititis with glelnhumeral chondroplasty debridement biceps partial thickness tear Lateral clavicle resection. bone spur left foot on 04/23/2013 at 63 Years. interstim bladder stimulator insertion on 11/07/2012 at 62 Years. Colonoscopy ([id number]) on 11/06/2012 at 62 Years. Bunionectomy ([id number]) on 04/05/2011 at 61 Years. Comments: 06/07/2015 11:30 Theresa Moody RN and heel spur removal cmc arthroplasty left hand on 05/19/2010 at 60 Years. cmc arthroplasty right hand on 10/19/2006 at 56 Years. spinal lumbar fusion. Comments: 06/07/2015 11:28 Theresa Moody RN 04/2003, 03/2009 Carpal tunnel release ([id number]). Comments: 06/07/2015 11:30 Theresa Moody RN bilateral H/O: hysterectomy ([id number]). Social History Social & Psychosocial Habits Alcohol 01/30/2023 Risk Assessment: Low Risk 01/30/2023 Use: Current Type: Wine Frequency: 1-2 times per week Substance Abuse 01/30/2023 Risk Assessment: Denies Substance Abuse Tobacco 01/30/2023 Risk Assessment: Denies Tobacco Use . Physical Examination Airway: Mallampati classification: II (soft palate, fauces, uvula visible). Respiratory: adequate air exchange. Cardiovascular: Regular rhythm. Plan [place] [employer] (ASA) physical status classification: Class II. Anesthetic Preoperative Plan: Anesthesia General. Regional Spinal. [facility] Comment on above: Result Comment: Elec tronically Signed By: Tyler Santos Jr, DO\.br\Date and Time Signed: 02/01/23 09:46 EST Progress Note-Physician Patient: CHELY DE LA ROSA Age: 73 years Sex: Female : 1950 Associated Diagnoses: None Author: Tyler Santos Jr, DO Postoperative Information Postoperative disposition: Postoperative disposition: To PACU. Optimetrix number: Optimetrix number [id number]. Anesthetic utilized: General. Regional: Spinal. Health Status Allergies: Allergic Reactions (Selected) Severity Not Documented Adhesive Bandage- Rash. Penicillins- Unknown. Physical Examination Vital Signs 01/30/2023 12:08 EST Heart Rate Monitored 48 bpm LOW SpO2 96 % 01/30/2023 12:06 EST Temperature Oral 36.2 DegC 01/30/2023 12:06 EST Systolic Blood Pressure 129 mmHg Diastolic Blood Pressure 80 mmHg Mean Arterial Pressure, Monitered 96 mmHg 01/30/2023 11:17 EST Temperature Temporal Artery 36.1 DegC LOW Heart Rate Monitored 68 bpm Respiratory Rate Monitored 19 br/min Systolic Blood Pressure 129 mmHg Diastolic Blood Pressure 74 mmHg Blood Pressure Location Right arm Mean Arterial Pressure, Cuff 92 mmHg SpO2 98 % 01/30/2023 11:04 EST Heart Rate Monitored 55 bpm LOW Respiratory Rate Monitored 11 br/min Systolic Blood Pressure 122 mmHg Diastolic Blood Pressure 66 mmHg Blood Pressure Location Right arm Mean Arterial Pressure, Cuff 85 mmHg SpO2 97 % 01/30/2023 10:59 EST Heart Rate Monitored 45 bpm LOW Respiratory Rate Monitored 10 br/min Systolic Blood Pressure 112 mmHg Diastolic Blood Pressure 66 mmHg Blood Pressure Location Right arm Mean Arterial Pressure, Cuff 81 mmHg SpO2 100 % 01/30/2023 10:54 EST Heart Rate Monitored 58 bpm LOW Respiratory Rate Monitored 12 br/min Systolic Blood Pressure 110 mmHg Diastolic Blood Pressure 79 mmHg Blood Pressure Location Right arm Mean Arterial Pressure, Cuff 89 mmHg SpO2 100 % 01/30/2023 10:49 EST Temperature Temporal Artery 36 DegC LOW Heart Rate Monitored 65 bpm Respiratory Rate Monitored 11 br/min Systolic Blood Pressure 106 mmHg Diastolic Blood Pressure 68 mmHg Blood Pressure Location Right arm Mean Arterial Pressure, Cuff 81 mmHg SpO2 99 % Pain Assessment: Controlled. General: Awake, Alert, Appropriate. Respiratory: Adequate air exchange. Cardiovascular: Stable, Normal peripheral perfusion. Neurological: Normal sensory function, Normal motor function. Assessment Anesthetic outcome No anesthetic complications noted. Adequate pain relief. able to void without difficulty, able to ambulate with assist, tolerating PO intake, no N/V. Review / Management Condition: Stable. Plan Transfer/Discharge: Transfer/Discharge Discharge when meets criteria ( To home ). Normal [facility] Comment on above: Result Comment: Elec tronically Signed By: Tom Leung DO, Tyler Claudio\.br\Date and Time Signed: 02/01/23 09:45 EST Auto Diffon 01-31-2023 Basophils/100 WBC (Bld) 0.1 % Normal 0.0-2.0 [facility] Comment on above: Order Comment: Order Added by Discern Expert. Performed By: #### 2 [id number] #### [facility] [address] [place] [id number] Basophils/Leukocytes Auto (Bld) [Pure # fraction] 0.0 E9/L Normal 0.0-0.2 [facility] Comment on above: Order Comment: Order Added by Kelsey Expert. Performed By: #### 2 [id number] #### [facility] [address] [place] [address] Eosinophils/100 WBC (Bld) 0.0 % Normal 0.0-8.0 [facility] Comment on above: Order Comment: Order Added by Discern Expert. Performed By: #### 2 [id number], [id number], [id number] #### [facility] [address] [place] [address] Eosinophils/Leukocyte s Auto (Bld) [Pure # fraction] 0.0 E9/L Normal 0.0-0.5 [facility] Comment on above: Order Comment: Order Added by Kelsey Expert. Performed By: #### 2 [id number] #### [facility] [address] [place] [address] Lymphocytes/100 WBC (Bld) 11.4 % Low 14.0-50.0 [facility] Comment on above: Order Comment: Order Added by Discern Expert. Performed By: #### 2 [id number], [id number], [id number] #### [facility] [address] [place] [address] Lymphocytes/Leukocyte s Auto (Bld) [Pure # fraction] 1.5 E9/L Normal 1.0-4.0 [facility] Comment on above: Order Comment: Order Added by Discern Expert. Performed By: #### 2 [id number], [id number] #### [facility] [address] [place] [address] Monocytes/100 WBC (Bld) 9.4 % Normal 4.0-14.0 [facility] Comment on above: Order Comment: Order Added by Discern Expert. Performed By: #### 2 [id number], [id number], [id number], [id number], [id number], [id number] #### [facility] [address] [place] [address] Monocytes/Leukocytes Auto (Bld) [Pure # fraction] 1.2 E9/L High 0.2-1.0 [facility] Comment on above: Order Comment: Order Added by Discern Expert. Performed By: #### 2 [id number], [id number], [id number], [id number] #### [facility] [address] [place] [address] Neutrophils/100 WBC (Bld) 79.1 % High 36.0-75.0 [facility] Comment on above: Order Comment: Order Added by Discern Expert. Performed By: #### 2 [id number], [id number], [id number], [id number], [id number], [id number] #### [facility] [address] [place] [place] [address] Neutrophils/Leukocyte s Auto (Bld) [Pure # fraction] 10.2 E9/L High 2.0-7.5 [facility] Comment on above: Order Comment: Order Added by Discern Expert. Performed By: #### 2 666361, 9550028, 9759092, 6269708, [id number], [id number] #### [facility] [address] [place] [address] BUNon 01-31-2023 Urea nitrogen [Mass/Vol] 13 mg/dL Normal 5-21 [facility] Comment on above: Performed By: #### 2 290475, 1314853, 8627421, 8794728, 25957388, 4631615 #### [facility] [address] [place] [address] CBC w/ Auto Diffon Erythrocyte distribution width (RBC) [Ratio] 13.0 % Normal 10.9-14.2 [facility] Comment on above: Performed By: #### 2 037152, 5301658, 7290953, 0528147, 53163521, 4411944 #### [facility] [address] [place] [address] Hematocrit (Bld) [Volume fraction] 31.9 % Low 34.0-46.0 [facility] Comment on above: Performed By: #### 2 112473, 6049710, 6949413, 8668510, 52364104, 0154474 #### [facility] [address] [place] [address] Hemoglobin (Bld) [Mass/Vol] 10.7 g/dL Low 12.0-16.0 [facility] Comment on above: Performed By: #### 2 815852, 6622235, 7093940, 4617742, 82631235, 1037347 #### [facility] [address] [place] [address] MCH (RBC) [Entitic mass] 31.1 pg Normal 27.0-34.0 [facility] Comment on above: Performed By: #### 2 042093, 2230204, 3360288, 6375136, 61314044, 5580679 #### [facility] [address] [place] [address] MCHC (RBC) [Mass/Vol] 33.5 g/dL Normal 31.4-36.0 [facility] Comment on above: Performed By: #### 2 673692, 9646603, 1196288, 9748310, 35687074, 6000524 #### [facility] [address] [place] [address] MCV (RBC) [Entitic vol] 92.9 fL Normal 80.0-100.0 [facility] Comment on above: Performed By: #### 2 657182, 1470962, 1804516, 3728266, 92982289, 8279650 #### [facility] [address] [place] [address] Platelet mean volume (Bld) [Entitic vol] 7.2 fL Normal 6.4-10.8 [facility] Comment on above: Performed By: #### 2 293643, 8142887, 0512477, 2611353, 80954756, 2157735 #### [facility] [address] [place] [address] Platelets (Bld) [#/Vol] 279.0 E9/L Normal 150.0-500.0 [facility] Comment on above: Performed By: #### 2 371957, 1912444, 6210561, 9826551, 62106314, 2007234 #### [facility] [address] [place] [address] RBC (Bld) [#/Vol] 3.4 E12/L Low 4.3-5.9 [facility] Comment on above: Performed By: #### 2 294770, 8212708, 9335051, 2590984, 48791446, 3805642 #### [facility] [address] [place] [address] WBC corrected for nucl RBC Auto (Bld) [#/Vol] 12.8 E9/L High 4.0-11.0 [facility] Comment on above: Performed By: #### 2 601521, 0295139, 4067584, 0736685, 53664146, 7819243 #### [facility] [address] [place] [address] Consent for Anesthesiaon Consent for Anesthesia [id number]. [id number] Normal [facility] Creatinineon 01-31-2023 Creatinine [Mass/Vol] 0.6 mg/dL Normal 0.5-1.3 [facility] Comment on above: Performed By: #### 2 467415, 9032884, 9707924, 2715029, 16683353, 6359926 ####[facility] [address] [place] [address] Discharge Instructionson Discharge Instructions [id number] .[id number] Normal [facility] Discharge Note-Nursingon Discharge Note-Nursing CHELY DE LA ROSA :1950 Visit Date:01/30/2023 Inpatient Discharge Instructions Your Care Team Admitting Physician - Bishnu June DO Referring Physician - Bishnu June DO Reason for Your Visit OA RIGHT KNEE Your Diagnosis Degenerative arthritis of right knee Tests Performed ABO/Rh Antibody Screen Automated Diff eGFR XR Knee 1 or 2 Views Right This Is Your Medications List Non-Formulary Medication Non-Formulary Medication (5-HT 100mg) acetaminophen-oxycodo ne (Percocet 5 mg-325 mg oral tablet) aspirin (aspirin 81 mg Oral EC Tab) busPIRone (busPIRone 15 mg Tab) calcium-vitamin D (calcium-vitamin D 600 mg-200 intl units oral capsule) celecoxib (CeleBREX 100 mg Cap) cephalexin (Keflex 500 mg Cap) cholecalciferol (Vitamin D3) chondroitin-glucosami ne (Chondroitin-Glucosam ine oral tablet) docusate (Colace 100 mg Cap) famotidine (famotidine 20 mg Tab) guaifenesin (Mucinex 600 mg Tab-ER) melatonin (melatonin 5 mg oral tablet) multivitamin with minerals (Multivitamins and Minerals) oxybutynin (oxybutynin 15 mg ER Tab) tramadol (traMADOL 50 mg Tab) zinc gluconate (zinc gluconate 50 mg oral tablet) Contact prescribing physician if questions or concerns acetaminophen-oxycodo ne (Percocet 5 mg-325 mg oral tablet) [Image Removed: STOP]Stop taking these medications meloxicam (meloxicam 15 mg Tab) naproxen (Aleve Caplet 220 mg oral tablet) Procedure History Revision of right total knee arthroplasty (01/30/2023), Left shoulder arthroscopic rotator cuff repair (06/23/2015), bone spur left foot (04/23/2013), interstim bladder stimulator insertion (11/07/2012), Colonoscopy (11/06/2012), Bunionectomy (04/05/2011), cmc arthroplasty left hand (05/19/2010), cmc arthroplasty right hand (10/19/2006), Carpal tunnel release, H/O: hysterectomy, spinal lumbar fusion. Discharge Vitals Temperature (Oral) 36.6 ?C Heart Rate (Monitored) 80 Respiratory Rate 18 Blood Pressure 119/73 Weight 74.3 kg What to do next Instructions From Your Doctor Event Name Event Result Pending Diagnostic Test Results None Pharmacy Information [facility]- New Follow Up Appointments after Discharge Follow Up with Bishnu June When: 02/14/2023 09:45 AM EST Where: [address] [place] [address]- Business (1) Follow Up with Josue BOSS When: In 0 days Where: [address] [facility] [address] [place] [address]- Business (1) Medications What How Much When Instructions Next Dose New acetaminophen-oxycodo ne (Percocet 5 mg-325 mg oral tablet) See instructions 1-2 tab(s) Oral q4hr Pickup at [facility] #[id number] NEEDED FOR PAIN, 01/31 AFTER 1 PM Changed tramadol (traMADOL 50 mg Tab) 1 Tablets By Mouth Every day 02/01 @ 9 AM Unchanged aspirin (aspirin 81 mg Oral EC Tab) 2 Tablets By Mouth Every day Duration: 30 Days Pickup at [facility] #[id number] 02/01 @ 9 AM Unchanged busPIRone (busPIRone 15 mg Tab) 1 Tablets By Mouth 2 times a day 01/31 @ 9 PM Unchanged calcium-vitamin D (calcium-vitamin D 600 mg-200 intl units oral capsule) 1 Capsules By Mouth Every day 02/01 @ 9 AM Unchanged celecoxib (CeleBREX 100 mg Cap) 1 Capsules By Mouth 2 times a day as needed for for pain Pickup at [facility] #[id number] NEEDED FOR PAIN Unchanged cephalexin (Keflex 500 mg Cap) 1 Capsules By Mouth Every 8 hours Duration: 7 Days Pickup at [facility] #[id number] 02/01 @ 9 AM Unchanged cholecalciferol (Vitamin D3) 3,000 Units By Mouth Every day 02/01 AM Unchanged chondroitin-glucosami ne (Chondroitin-Glucosam ine oral tablet) 1 tab By Mouth 2 times a day 01/31 @ PM Unchanged docusate (Colace 100 mg Cap) 1 Capsules By Mouth 2 times a day as needed for for constipation Pickup at [facility] #[id number] 01/31 @ PM, NEEEDED FOR CONSTIPATION Unchanged famotidine (famotidine 20 mg Tab) 1 Tablets By Mouth 2 times a day 01/31 @ 9 PM Unchanged guaifenesin (Mucinex 600 mg Tab-ER) 1 Tablets By Mouth Every 12 hours 01/31 @ PM Unchanged melatonin (melatonin 5 mg oral tablet) 1 Tablets By Mouth Once a day (at bedtime) as needed for for insomnia NEEDED FOR INSOMNIA Unchanged multivitamin with minerals (Multivitamins and Minerals) 1 tab By Mouth Every day 02/01 @ 9 AM Unchanged Non-Formulary Medication (5-HT 100mg) 1 tab By Mouth Every day 02/01 @ AM Unchanged oxybutynin (oxybutynin 15 mg ER Tab) 1 Tablets By Mouth Every day 02/01 @ 9 AM Unchanged zinc gluconate (zinc gluconate 50 mg oral tablet) See instructions Daily 02/01 @ 9 AM Pharmacy Information [facility] #[id number]: [address], [place] [id number] [phone] What How Much When Comments Stop Taking meloxicam (meloxicam 15 mg Tab) 1 Tablets By Mouth Every day Stop Taking naproxen (Aleve Caplet 220 mg oral tablet) 1 Tablets By Mouth Every 8 hours as needed for as needed for inflammation Test Results CBC BMP WBC: 12.8 E9/L High (01/31/23 04:46:00) BUN: 13 mg/ (more content not included)... Normal [facility] Inpatient Clinical Summaryon 01-31-2023 Inpatient Clinical Summary [address] [address] Clinical Summary Person Information: Name: CHELY DE LA ROSA Age: 73 Years : 1950 Sex: Female PCP: Josue BOSS DO Marital Status: Race: White Ethnicity: Non- or Language: Bengali Visit Id: Visit Reason: OA RIGHT KNEE Speciality: Acuity: Enc Type: Observation Med Service: Medical Arrival: 01/30/2023 05:59:51 Discharge: Dispo Type: Address: [address] [place] [id number] Provider Notes: Diagnosis: Degenerative arthritis of right knee Problems No Problems Documented Smoking Status: Functional Status: Sensory Deficits: History of Falls: Mobility Assistance Prior to Admission: ADLs: Moderate assistance Current Level of Assistance for Self-Care/Mobility: Cognitive Status: Allergies penicillins (Unknown) Adhesive Bandage (rash) Measurements: Height: Weight: 74.3 kg Blood Pressure: 127 mmHg / 69 mmHg BMI: Procedures Revision of right total knee arthroplasty (01/30/2023) Immunizations No Immunizations Documented This Visit Final Med List: acetaminophen-oxycodo ne (Percocet 5 mg-325 mg oral tablet) 1-2 tab(s) Oral q4hr. Refills: 0. aspirin (aspirin 81 mg Oral EC Tab) 2 Tablets By Mouth every day for 30 Days. Refills: 0. busPIRone (busPIRone 15 mg Tab) 1 Tablets By Mouth 2 times a day. calcium-vitamin D (calcium-vitamin D 600 mg-200 intl units oral capsule) 1 Capsules By Mouth every day. celecoxib (CeleBREX 100 mg Cap) 1 Capsules By Mouth 2 times a day as needed for pain. Refills: 0. cephalexin (Keflex 500 mg Cap) 1 Capsules By Mouth every 8 hours for 7 Days. Refills: 0. cholecalciferol (Vitamin D3) 3,000 Units By Mouth every day. chondroitin-glucosami ne (Chondroitin-Glucosam ine oral tablet) 1 tab By Mouth 2 times a day. docusate (Colace 100 mg Cap) 1 Capsules By Mouth 2 times a day as needed for constipation. Refills: 0. famotidine (famotidine 20 mg Tab) 1 Tablets By Mouth 2 times a day. guaifenesin (Mucinex 600 mg Tab-ER) 1 Tablets By Mouth every 12 hours. melatonin (melatonin 5 mg oral tablet) 1 Tablets By Mouth once a day (at bedtime) as needed for insomnia. multivitamin with minerals (Multivitamins and Minerals) 1 tab By Mouth every day. Non-Formulary Medication 1 By Mouth 2 times a day. Non-Formulary Medication (5-HT 100mg) 1 tab By Mouth every day. oxybutynin (oxybutynin 15 mg ER Tab) 1 Tablets By Mouth every day. tramadol (traMADOL 50 mg Tab) 1 Tablets By Mouth every day. zinc gluconate (zinc gluconate 50 mg oral tablet) Care Team Members: Attending Physician: Bishnu June DO Consulting Physician: Referring Physician: Bishnu Juen DO Follow up: With: Address: When: Bishnu June [address] [place] [address] Business (1) 02/14/2023 9:45 AM With: Address: When: Josue BOSS [address] [place], [place] [phone] Business (1) Patient Education Information: Paige June - Total Knee Arthroplasty (Custom) [facility] Inpatient Patient Summaryon 01-31-2023 Inpatient Patient Summary [address] [address] Patient Discharge Instructions PERSON INFORMATION Name: CHELY DE LA ROSA Date of : 1950 Current Date: 01/31/2023 07:07:20 PHYSICIANS Admitting Physician: Bishnu June DO Primary Care Physician: Josue BOSS DO PCP Comment: Discharge Diagnosis: Degenerative arthritis of right knee Condition at Discharge: Improved CHELY DE LA ROSA has been given the following list of follow-up instructions, prescriptions, and patient education materials: PATIENT FOLLOW-UP INFORMATION Diet: Discharge Activity: Discharge Restrictions: Wound Care Instructions: Remove Your Dressing In Days Call Your Doctor For: IF UNABLE TO CONTACT YOUR PHYSICIAN AND YOU FEEL IT IS AN EMERGENCY, GO TO THE NEAREST EMERGENCY ROOM OR CALL 911 Home Treatment: Devices/Equipment: Special Services: Additional Instructions: Primary Care Physician to provide the following pending test results: None Follow up: With: Address: When: Bishnu June [address] [place] [address] Business (1) 02/14/2023 9:45 AM With: Address: When: Josue BOSS [address] [place] [address], [address] [phone] Business (1) In the event that this physician does not participate in your insurance network, please consult with your insurance company to find a nearby participating provider. Comment: IRJ KATHLEEN D, have received the attached patient education materials/instruction s and have verbalized understanding: Patient Signature Date Clinican/Nurse Signature Date HERE ARE THE MEDICATION CHANGES THAT OCCURRED DURING YOUR HOSPITAL STAY Medications to Continue Taking That Have Changed Other Medications START: tramadol (traMADOL 50 mg Tab) 1 Tablets By Mouth every day. Last Dose: ____Next Dose: ____ STOP: tramadol (traMADOL 50 mg Tab) 1 Tablets By Mouth every 6 hours as needed as needed for pain. Medications to Continue with No Changes [id number], [phone] [facility] [place], [place] [id number], [phone] acetaminophen-oxycodo ne (Percocet 5 mg-325 mg oral tablet) 1-2 tab(s) Oral q4hr. Refills: 0. Last Dose: ____Next Dose: ____ aspirin (aspirin 81 mg Oral EC Tab) 2 Tablets By Mouth every day for 30 Days. Refills: 0. Last Dose: ____Next Dose: ____ celecoxib (CeleBREX 100 mg Cap) 1 Capsules By Mouth 2 times a day as needed for pain. Refills: 0. Last Dose: ____Next Dose: ____ cephalexin (Keflex 500 mg Cap) 1 Capsules By Mouth every 8 hours for 7 Days. Refills: 0. Last Dose: ____Next Dose: ____ docusate (Colace 100 mg Cap) 1 Capsules By Mouth 2 times a day as needed for constipation. Refills: 0. Last Dose: ____Next Dose: ____ Other Medications busPIRone (busPIRone 15 mg Tab) 1 Tablets By Mouth 2 times a day. Last Dose: ____Next Dose: ____ calcium-vitamin D (calcium-vitamin D 600 mg-200 intl units oral capsule) 1 Capsules By Mouth every day. Last Dose: ____Next Dose: ____ cholecalciferol (Vitamin D3) 3,000 Units By Mouth every day. Last Dose: ____Next Dose: ____ chondroitin-glucosami ne (Chondroitin-Glucosam ine oral tablet) 1 tab By Mouth 2 times a day. Last Dose: ____Next Dose: ____ famotidine (famotidine 20 mg Tab) 1 Tablets By Mouth 2 times a day. Last Dose: ____Next Dose: ____ guaifenesin (Mucinex 600 mg Tab-ER) 1 Tablets By Mouth every 12 hours. Last Dose: ____Next Dose: ____ melatonin (melatonin 5 mg oral tablet) 1 Tablets By Mouth once a day (at bedtime) as needed for insomnia. Last Dose: ____Next Dose: ____ multivitamin with minerals (Multivitamins and Minerals) 1 tab By Mouth every day. Last Dose: ____Next Dose: ____ Non-Formulary Medication 1 By Mouth 2 times a day., neurvia Last Dose: ____Next Dose: ____ Non-Formulary Medication (5-HT 100mg) 1 tab By Mouth every day., mood, concentration Last Dose: ____Next Dose: ____ oxybutynin (oxybutynin 15 mg ER Tab) 1 Tablets By Mouth every day. Last Dose: ____Next Dose: ____ zinc gluconate (zinc gluconate 50 mg oral tablet) Last Dose: ____Next Dose: ____ No Longer Take the Following Medications meloxicam (meloxicam 15 mg Tab) 1 Tablets By Mouth every day. naproxen (Aleve Caplet 220 mg oral tablet) 1 Tablets By Mo (more content not included)... Normal [facility] IntraOperative Documentson 1 04-03-2022 IntraOperative Documents [id number]. [id number] Normal [facility] Lyteson 01-31-2023 Anion gap [Moles/Vol] 11 mmol/L Normal 6-16 [facility] Comment on above: Performed By: #### 2 324368, 6867947, 4038715, 2654345, 67475014, 9988571 #### [facility] [address] [place] [address] Chloride [Moles/Vol] 107 mmol/L Normal 101-111 [facility] Comment on above: Performed By: #### 2 377560, 1782461, 6064489, 4057511, 16799160, 0100481 #### [facility] [address] [place] [address] CO2 [Moles/Vol] 25 mmol/L Normal 21-[address] [facility] Comment on above: Performed By: #### 2 915164, 2414700, 8470352, 1916865, 95781680, 2552733 #### [facility] [address] [place] [address] Potassium [Moles/Vol] 4.0 mmol/L Normal 3.5-5.3 [facility] Comment on above: Performed By: #### 2 610825, 3978180, 0087556, 5792955, 53262654, 1328933 #### [facility] [address] [place] [address] Sodium [Moles/Vol] 139 mmol/L Normal 135-145 [facility] Comment on above: Performed By: #### 2 946048, 2963000, 3512247, 9289508, 80247646, 5203200 #### [facility] [address] [place] [address] Message from Medicareon 01-18 Message from Medicare [id number] .[id number] Normal [facility] Patient Education - Texton 1 04-03-2022 Patient Education - Text [place], [place] [facility] DISCHARGE INSTRUCTIONS: TOTAL KNEE ARTHROPLASTY INCISION CARE: The bandage may be changed by your home Physical Therapist at 7 days postoperatively and worn an additional 7 days. A new Mepilex bandage should then be placed. The bandage is waterproof, so you may shower at home. Steri-strips (paper tape strips) may be applied to the incision if any slight wound separation is noted. These should remain in place for five days and then they may come off in the shower. Please notify the office if any increase in redness, tenderness, drainage, fever, or wound separation is noted beyond this point. MEDICATIONS: You may resume your home medications at the time of discharge. Arixtra and Lovenox are mild blood thinners that prevent the development of blood clots in the legs. One of these has been used during your hospitalization. After discharge home you should continue the use of two stomach coated baby Aspirin tablets daily with your largest meal for 30 days after home discharge. Please notify your doctor if you have a stomach sensitivity to Aspirin or history of previous stomach ulcers. Pain medication has been prescribed as well. You may continue to use the pain medication every four hours as needed. Any narcotic pain medication can cause side effects including stomach upset, constipation, or light-headedness. You should not drive or operate machinery, or drink alcohol while using the narcotic pain medication. You should not use other pain medications with this prescription pain medication unless further directed by your physician. PHYSICAL THERAPY Continue the range of motion and strengthening exercises initiated by Physical Therapy in the hospital. Continue weight bearing, as ordered, to the operated knee as directed in Physical Therapy. This will be with the use of a walker or crutches initially. Physical therapy as begun in the hospital will continue at home, possibly with the service center assistant of Home Health Physical Therapy or in the hospital as an outpatient. When you have become independent with the physical therapy program, this will then be discontinued as a supervised program and you will be instructed to continue the physical therapy exercises at home. Your exercises are benito to successful rehabilitation. You should gain full extension first, hopefully before hospital discharge, and gain 90 degrees flexion by one month post-op. Do the exercises daily, twice if preferred. DRIVING: Please do not drive for 4-6 weeks pending therapy progress. 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 It is therefore advised not to drive until after your first office visit following surgery. FOLLOW-UP OFFICE VISIT: Bishnu June, DO [facility] [address] [place] [address] Reviewed: 07-10 acetaminophen and oxycodone (a SEET a MIN oh fen and OX i KOE done) Endocet 10/325, Endocet 2.5/325, Endocet 5/325, Endocet 7.5/325, Nalocet, Percocet, Prolate What is the most important information I should know about acetaminophen and oxycodone? MISUSE OF OPIOID MEDICINE CAN CAUSE ADDICTION, OVERDOSE, OR . Keep the medication in a place where others cannot get to it. Taking opioid medicine during may cause life-threatening withdrawal symptoms in the . Fatal side effects can occur if you use opioid medicine with alcohol, or with other drugs that cause drowsiness or slow your breathing. Stop taking this medicine and call your doctor right away if you have skin redness or a rash that spreads and causes blistering and peeling. What is acetaminophen and oxycodone? Acetaminophen and oxycodone is a combination medicine used to relieve moderate to severe pain. Acetaminophen and oxycodone contains an opioide medicine and may be habit-forming. Acetaminophen and oxycodone may also be used for purposes not listed in this medication guide. What should I discuss with my healthcare provider before taking acetaminophen and oxycodone? You should not use this medicine if you are allergic to acetaminophen or oxycodone, or if you have: ?? severe asthma or breathing problems; or ? a blockage in your stomach or intestines. Tell your doctor if you have ever had: ?? breathing problems, sleep apnea; ? liver disease; ? a drug or alcohol addiction; ? kidney disease; ? a head injury or seizures; ? urination problems; or ? problems with your thyroid, pancreas, or gallbladder. If you use opioid medicine while you are , your baby could become dependent on the drug. This can cause life-threatening withdrawal symptoms in the baby after it is born. Babies born dependent on opioids may need medical treatment for several weeks. Ask a doctor before using opioid medicine if you are . Tell your doctor if you notice severe drowsiness or slow breathing in the nursing baby. How (more content not included)... Normal [facility] Preoperative Documentson Preoperative Documents [id number]. [id number] Normal [facility] Progress Note-Physicianon Progress Note-Physician Patient: CHELY DE LA ROSA Age: 73 years Sex: Female : 1950 Associated Diagnoses: None Author: Bishnu June DO POD 1 s/p R TKA pain controlled. cady po. no CP/SOB, got up with PT yesterday R LE: knee with mild swelling, dressings dry, comp supple, ankle PF/DF intact, brisk cap refill WBC 12.8 Hgb 10.7 Hct 31.9 Plt 279 BMP WNL post op xrays reviewed yesterday. prosthesis in satisfactory position Plan: - D/C home after PT Objective Vital Signs 01/31/2023 5:00 EST Temperature Oral 36.9 DegC Heart Rate Monitored 73 bpm Systolic Blood Pressure 127 mmHg Diastolic Blood Pressure 69 mmHg Normal [facility] Comment on above: Result Comment: Elec tronically Signed By: Bishnu June DO\Date and Time Signed: 01/31/23 07:08 EST eGFRon 01-31-2023 GFR/1.73 sq M.predicted among non-blacks MDRD (S/P/Bld) [Vol rate/Area] mL/min/{1.73_m2} Normal >=59 [facility] Comment on above: Order Comment: Order added by Discern Expert. Performed By: #### 2 450654, 5788710, 6861566, 5362628, 55125957, [id number] #### [facility] Laboratory [address] [place] [address] ABO/Rhon 01-30-2023 ABO/Rh Negative Invalid Interpretation Code [facility] Comment on above: Performed By: #### 2 546641, [id number], [id number], [id number] ####[facility] [id number] [facility] [place] [address] ABO/Rh History Checkon 01-30 ABO/Rh History Check Verified Hx Blood Type Normal [facility] Comment on above: Performed By: #### 2 [id number], [id number], [id number], [id number] ####[facility] [address] [place] [address] ABSCon 01-30-2023 ABSC Gel Interp Negative Normal [facility] Comment on above: Performed By: #### 2 [id number], [id number], [id number], [id number] ####[facility] [address] [place] [address] Blood Bank ID#on 01-30-2023 BBID# [id number] Invalid Interpretation Code [facility] Comment on above: Performed By: #### 2 [id number], [id number], [id number], [id number] ####[facility] [address] [place] [address] Consent for Treatmenton 01-18 Consent for Treatment [id number]#1 .00TIFF [facility] H&P Updateon 01-30-2023 H&P Update [id number]# 1.00TIFF [facility] Interdisciplinary Note - Ignacio n 01-30-2023 Interdisciplinary Note - OT OT AM-PAC six clicks score: =home with ortho 360. Pt completes ADL functional transfers including commode transfer CGA using FWW. Pt has necessary DME for safety and lives with her . OT to return tomorrow morning to review full body dressing prior to discharging home with ortho 360. Normal [facility] Main OR PACU I Recordon 01-18 Main OR PACU I Record PACU Phase I Docum ent Type FT Summary Primary Physician: Bishnu June DO Finalized Date/Time: 01/30/23 11:43:17 Pt. Name: CHELY DE LA ROSA/Sex: 1950 Female Med Rec #: [id number] Physician: Bishnu June DO Financial #: [id number] Pt. Type: A Room/Bed: Admit/Disch: 01/30/23 05:59:51 - Institution: Case Times PACU I FT Pre-Care Text: Identifies barriers to communication and implements measures to provide psychological support Develops individualized plan of care, and ensures continuity of care Maintains patient's dignity and privacy, and maintains patient confidentiality Identifies and reports philosophical, cultural, and spiritual beliefs and values Identifies individual values and wishes concerning care Implements aseptic technique, and administers prescribed antibiotic therapy and immunizing agents as ordered Evaluates postoperative tissue perfusion Implements thermoregulation measures, and monitors body temperature Evaluates postoperative respiratory status Evaluates postoperative cardiac status Evaluates postoperative neurological status Assesses pain control, collaborated in initiating patient-controlled analgesia and implements alternative methods of pain control Verifies allergies, administers prescribed medications and solutions, evaluates response to medications Entry 1 In PACU I 01/30/23 10:49:00 Discharge from PACU 01/30/23 11:19:00 I Outcomes Met? Yes Last Modified By: Sadie Chang RN 01/30/23 11:43:09 Post-Care Text: The patient demonstrates knowledge of the expected response to the operative or invasive procedure The patient's care is consistent with the individualized perioperative plan of care The patient's right to privacy is maintained The patient's value system, lifestyle, ethnicity, and culture are considered, respected, and incorporated into the perioperative plan of care The patient participates in decisions affecting his or her perioperative plan of care The patient is free from signs and symptoms of infection The patient has wound/tissue perfusion consistent with or improved from baseline levels established preoperatively The patient is at or returning to normothermia at the conclusion of the immediate postoperative period The patient's respiratory function is consistent with or improved from baseline levels established preoperatively The patient's cardiovascular status is consistent with or improved from baseline levels established preoperatively The patient's cardiovascular status is consistent with or improved from baseline levels established preoperatively The patient demonstrates and/or reports adequate pain control throughout the perioperative period The patient received appropriate medication(s), safely administered during the perioperative period Acuity Level PACU I FT Entry 1 Start Time 01/30/23 10:49:00 Stop Time 01/30/23 11:19:00 Acuity Level Acuity Level I Last Modified By: Sadie Chang RN 01/30/23 11:43:16 Finalized By: Sadie Chang RN Document Signatures Signed By: Sadie Chang RN 01/30/23 11:43 Normal [facility] Main OR Preoperative Recordo n 01-30-2023 Main OR Preoperative Record PreOp Document Type FT Summary Primary Physician: Bishnu June DO Finalized Date/Time: 01/30/23 09:57:09 Pt. Name: CHELY DE LA ROSA/Sex: 1950 Female Med Rec #: [id number] Physician: Bishnu June DO Financial #: [id number] Pt. Type: A Room/Bed: Admit/Disch: 01/30/23 05:59:51 - Institution: Case Times PreOp FT Pre-Care Text: Verifies consent for planned procedure, identifies individual values and wishes concerning care, includes family members in perioperative teaching Entry 1 Patient Times. In Pre Surgery 01/30/23 06:05:00 Out Pre Surgery 01/30/23 08:52:00 Outcomes Met? Yes Last Modified By: Es Haley RN 01/30/23 09:57:07 Post-Care Text: The patient participates in decisions affecting his or her perioperative plan of care Finalized By: Es Haley RN Document Signatures Signed By: Es Haley RN 01/30/23 09:57 Normal [facility] Monitor Recordon 01-30-2023 Monitor Record [id number]# 1.00TIFF Normal [facility] Operative Reporton 3 Operative Report Patient: CHELY DE LA ROSA Age: 73 years Sex: Female : 1950 Associated Diagnoses: None Author: Bishnu June DO DATE OF SURGERY: 01/30/2023 SURGEON: Bishnu June D.O. ELECTROPLATER: Brad Varghese CFA PREOPERATIVE DIAGNOSIS: Advanced degenerative osteoarthrosis, right knee POSTOPERATIVE DIAGNOSIS: Advanced degenerative osteoarthrosis, right knee OPERATION: Right total knee arthroplasty utilizing [employer] robotic arm assistance ANESTHESIA: Spinal + regional block SUPERVISOR MIXING: Akanksha Jeffrey CRNA and Tyler Santos DO IMPLANTS USED: Moraima Triathlon Total Knee System 1. size 4 cruciate retaining cementless femur 2. Size 11 mm X3 CS polyethylene 3. Size 4 Tritanium cementless tibial baseplate 4. Size 32 mm asymmetric Tritanium cementless patella OPERATIVE INDICATIONS: Melva is a 73-year-old female who has had persistent right knee pain despite numerous conservative measures. Her pain interferes with her activities of daily living, ability to sleep at night, and quality of life. She agreed to proceed with the above procedure after a discussion of the risks, benefits, complications, alternatives, and expectations. Please see office notes for further details. The patient's surgery was preplanned utilizing CT scan and Calvin software. This included the planned implant sizes and positions, bone resection, and ligament balancing. Modifications to the plan were made intraoperatively as appropriate. PROCEDURE: The correct operative site was identified and marked in the preoperative holding area. The patient was administered intravenous antibiotics in accordance with SCIP Protocol. She was also given a gram of tranexamic acid intravenously about 15 minutes prior to incision. She was transported to the Regional Anesthetic Block Room and administered a regional anesthetic nerve block by the anesthesiologist. I requested the nerve block to assist with intraoperative and postoperative pain control. She was transported to the Operating Room and administered a spinal anesthetic. She was placed into the supine position and a well padded tourniquet was applied to the operative upper thigh. The right upper extremity was secured across the patient's torso. The operative lower extremity was then prepped and draped in the usual sterile fashion. The foot was placed into a padded bear and secured in the Powers knee positioner. Surgical time-out was performed with all required personnel present. The limb was exsanguinated with an Esmarch. Tourniquet was inflated to 300 mm Hg. A longitudinal incision over the anterior knee was made. Medial and lateral skin flaps were developed. Dissection was carried down through the subcutaneous layers. Medial parapatellar arthrotomy was performed and normal appearing joint fluid was encountered and suctioned. Irrisept solution was poured into the joint. The intermeniscal ligament was then cut and soft tissue at the medial tibial plateau was peeled off of the bone with Bovie electrocautery. The fat pad was sharply excised. The patella was everted and the knee was flexed. Tourniquet was deflated at 6 minutes and adequate perfusion was noted to return to the extremity. Areas of active bleeding were cauterized with the Bovie and Aquamantys. The tibial pins for the tibial array were placed approximately 5 finger breadths distal to the tibial tubercle along the medial tibial shaft. The tibial pins were placed outside of the incision through 2 small stab incisions. The tibial array was placed onto the pins and secured. The distal femoral pins for the femoral array were placed in the medial femoral condyle. The femoral array was affixed to the pins. The registration device was then placed into the distal femur just distal to the array pins along the medial femoral condyle. The tibial registration device was placed along the medial tibia within the surgical wound distal to the planned tibial resection. The hip center, medial and lateral malleoli were registered. Registration points along the distal femur and proximal tibia were captured. Osteophytes along the distal femur and proximal tibia were removed with a rongeur. Range of motion of the knee was then assessed with the computer. The patient had 2 degrees of recurvatum and 4 degrees of varus. Preliminary ligament balancing was performed with the tensioning spoons in both flexion and extension and these values were captured by the computer. Adjustments to the planned resection were made to balance the ligaments. The self-retaining medial and lateral retractors were then placed and secured to the leg bear. Bone resection was then performed with computer guidance using the saw attached to the Calvin robotic arm. Femoral cuts were made including anterior, posterior, and chamfer cuts. The tibial cut was then made in the same fashion. The resected bone fragments were removed with osteotomes and freed (more content not included)... Normal [facility] Comment on above: Result Comment: Elec tronically Signed By: Bishnu June DO\.br\Date and Time Signed: 01/30/23 15:54 EST Outpatient Surgery Discharge Instructionon 01-30-2023 Outpatient Surgery Discharge Instruction [place] [address] Patient Discharge Instructions PERSON INFORMATION Name: CHELY DE LA ROSA Date of : 1950 Current Date: 01/30/2023 07:14:41 PHYSICIANS Admitting Physician: Bishnu June DO Discharge Diagnosis: Degenerative arthritis of right knee CHELY DE LA ROSA has been given the following list of follow-up instructions, prescriptions, and patient education materials: IF UNABLE TO CONTACT YOUR PHYSICIAN AND YOU FEEL IT IS AN EMERGENCY, GO TO THE NEAREST EMERGENCY ROOM OR CALL 911 I, CHELY DE LA ROSA, have received the attached patient education materials/instruction s and have verbalized understanding: May we do a follow up call? Yes No I was present when discharge instructions were given Patient Signature Date Clinican/Nurse Signature Date Follow up: With: Address: When: [address] [address] Business (1) Pharmacy Information: You may receive a survey from Brandon [employer]uent[employer] asking you to rate your care experience. Your feedback is important and will help us understand what we do well and how we can improve the quality of care we provide to you, your loved ones and our community. It?s an honor to serve you. Thank you for choosing [facility] HERE ARE THE MEDICATION CHANGES THAT OCCURRED DURING YOUR HOSPITAL STAY New Medications [id number], [address] [place], [place] [id number], [phone] acetaminophen-oxycodo ne (Percocet 5 mg-325 mg oral tablet) 1-2 tab(s) Oral q4hr. Refills: 0. aspirin (aspirin 81 mg Oral EC Tab) 2 Tablets By Mouth every day for 30 Days. Refills: 0. celecoxib (CeleBREX 100 mg Cap) 1 Capsules By Mouth 2 times a day as needed for pain. Refills: 0. cephalexin (Keflex 500 mg Cap) 1 Capsules By Mouth every 8 hours for 7 Days. Refills: 0. docusate (Colace 100 mg Cap) 1 Capsules By Mouth 2 times a day as needed for constipation. Refills: 0. Medications to Continue with No Changes Other Medications busPIRone (busPIRone 15 mg Tab) 1 Tablets By Mouth 2 times a day. cholecalciferol (Vitamin D3) 3,000 Units By Mouth every day. chondroitin-glucosami ne (Chondroitin-Glucosam ine oral tablet) 1 tab By Mouth 2 times a day. famotidine (famotidine 20 mg Tab) 1 Tablets By Mouth 2 times a day. melatonin (melatonin 5 mg oral tablet) 1 Tablets By Mouth once a day (at bedtime) as needed for insomnia. multivitamin with minerals (Multivitamins and Minerals) 1 tab By Mouth every day. Non-Formulary Medication (5-HT 100mg) 1 tab By Mouth every day., mood, concentration oxybutynin (oxybutynin 15 mg ER Tab) 1 Tablets By Mouth every day. zinc gluconate (zinc gluconate 50 mg oral tablet) No Longer Take the Following Medications meloxicam (meloxicam 15 mg Tab) 1 Tablets By Mouth every day. naproxen (Aleve Caplet 220 mg oral tablet) 1 Tablets By Mouth every 8 hours as needed as needed for inflammation. tramadol (traMADOL 50 mg Tab) 1 Tablets By Mouth every 6 hours as needed as needed for pain. PATIENT EDUCATION INFORMATION Instructions: [place], [place] [facility] DISCHARGE INSTRUCTIONS: TOTAL KNEE ARTHROPLASTY INCISION CARE: The bandage may be changed by your home Physical Therapist at 7 days postoperatively and worn an additional 7 days. A new Mepilex bandage should then be placed. The bandage is waterproof, so you may shower at home. Steri-strips (paper tape strips) may be applied to the incision if any slight wound separation is noted. These should remain in place for five days and then they may come off in the shower. Please notify the office if any increase in redness, tenderness, drainage, fever, or wound separation is noted beyond this point. MEDICATIONS: You may resume your home medications at the time of discharge. Arixtra and Lovenox are mild blood thinners that prevent the development of blood clots in the legs. One of these has been used during your hospitalization. After discharge home you should continue the use of two stomach coated baby Aspirin tablets daily with your largest meal for 30 days after home discharge. Please notify your doctor if you have a stomach sensitivity to Aspirin or history of previous stomach ulcers. Pain medication has been prescribed as well. You may continue to use the pain medication every four hours as needed. Any narcotic pain medication can cause side effects including stomach upset, constipation, or light-headedness. You should not drive or operate machinery, or drink alcohol while using the narcotic pain medication. You should not use other (more content not included)... Normal [facility] XR Knee 1 or 2 Views Righton 01-30-2023 XR Knee 1 or 2 Views Right Exam Date/Time: 01/30/2023 11:00 EST Reason for Exam: Post-op evaluation;Other (please specify) Report IMPRESSION: Interval right knee arthroplasty. EXAMINATION/TECHNIQUE : XR Knee 1 or 2 Views Right HISTORY: Postop right knee replacement. COMPARISON: CT 01/17/2023. Radiographs 08/14/2022. RESULT: Interval right total knee arthroplasty with patellar resurfacing. Hardware appears intact with appropriate positioning. Superior patellar enthesophyte. Soft tissue gas and edema about the knee from the recent procedure. No other significant abnormality. Ordering Provider: Bishnu June FINAL REPORT Dictated: 01/30/2023 12:56 pm Tima Foy MD. Signed (Electronic Signature): 01/30/2023 12:56 pm Signed by: Tima Foy MD Transcribed by: KUNAL Technologist: NANCI Technical Comments Radiation Dose: Ka,r in mGy = na DAP = na Normal [facility] Consent for Procedure/Surger yon 01-29-2023 Consent for Procedure/Surgery [id number]# 1.00TIFF Normal [facility] CT Lower Extremity w/o Contr ast Righton 01-25-2023 CT Lower Extremity w/o Contrast Right Exam Date/Time: 01/17/2023 08:52 EST Reason for Exam: OA RIGHT KNEE Report IMPRESSION: MODERATE TO MARKED DEGENERATIVE CHANGE RIGHT KNEE. CT OF THE RIGHT LOWER EXTREMITY WITHOUT INTRAVENOUS CONTRAST MEDIUM. History: OA RIGHT KNEE. Technical Factors: CT imaging of the right lower extremity was obtained and formatted as 2 mm contiguous axial images through the right hip, and 1 mm contiguous axial images through the right knee. Sagittal and coronal reconstructions were also obtained. Oral contrast medium: None. Intravenous contrast medium: None. Comparison: None Findings: Imaging through the right hip shows no fracture, dislocation, or bone lesion. Joint spaces maintained. Imaging through the right knee shows osteophyte formation along the medial and lateral tibial plateau as well as the medial and lateral femoral condyles. Calcification of meniscal cartilage identified. Osteophytes also found along medial and lateral aspects of medial and lateral femoral condyles. Small spur superior aspect patella. Narrowing patellofemoral compartment, and medial compartment. Fracture, dislocation, bone lesion. All CT scans at this facility use dose modulation, iterative reconstruction, and/or weight based dosing when appropriate to reduce radiation dose to as low as reasonably achievable. Report Ordering Provider: Bishnu June FINAL REPORT Dictated: 01/25/2023 9:39 am Artemio Borjas MD Signed (Electronic Signature): 01/25/2023 9:39 am Signed by: Artemio Borjas MD Transcribed by: KUNAL Technologist: PAUL García [facility] XR Chest 2 Viewson 3 XR Chest 2 Views Exam Date/Time: 01/17/2023 08:32 EST Reason for Exam: P.A.T. Report IMPRESSION: NO RADIOGRAPHIC EVIDENCE OF ACTIVE DISEASE IN THE CHEST. CLINICAL INFORMATION: P.A.T. COMPARISON: None available. FINDINGS: Two views of the chest were obtained. Heart and mediastinum appear normal. The lungs appear clear. Visualized bony thorax and remainder of the chest appears unremarkable. Ordering Provider: Best Ahmad FINAL REPORT Dictated: 01/18/2023 11:09 am Artemio Borjas MD Signed (Electronic Signature): 01/18/2023 11:09 am Signed by: Artemio Borjas MD Transcribed by: KNUAL Technologist: MARCOS Technical Comments Radiation Dose: Ka,r in mGy = na DAP = na Normal [facility] ABO/Rh Retypeon 01-17-2023 ABO/Rh Retype Interp Negative Invalid Interpretation Code [facility] Comment on above: Performed By: #### 1 [id number] ####[facility] [address] [place] [address] Auto Diffon 01-17-2023 Basophils/100 WBC (Bld) 0.9 % Normal 0.0-2.0 [facility] Comment on above: Order Comment: Order Added by Discern Expert. Performed By: #### 1 [id number], [id number], [id number], [id number] ####[address] [place] [address] Basophils/Leukocytes Auto (Bld) [Pure # fraction] 0.0 E9/L Normal 0.0-0.2 [facility] Comment on above: Order Comment: Order Added by Kelsey Expert. Performed By: #### 1 [id number], [id number], 8585283, [id number] ####[address] [place] [address] Eosinophils/100 WBC (Bld) 3.4 % Normal 0.0-8.0 [facility] Comment on above: Order Comment: Order Added by Kelsey Expert. Performed By: #### 1 [id number], 0825926, 7130669, [id number] ####[address] [address] Eosinophils/Leukocyte s Auto (Bld) [Pure # fraction] 0.2 E9/L Normal 0.0-0.5 [facility] Comment on above: Order Comment: Order Added by Kelsey Expert. Performed By: #### 1 [id number], [id number], 5872389, [id number] ####[address] [address] Lymphocytes/100 WBC (Bld) 40.7 % Normal 14.0-50.0 [facility] Comment on above: Order Comment: Order Added by Kelsey Expert. Performed By: #### 1 [id number], 6716861, 1750135, [id number] ####[address] [place] [address] Lymphocytes/Leukocyte s Auto (Bld) [Pure # fraction] 2.1 E9/L Normal 1.0-4.0 [facility] Comment on above: Order Comment: Order Added by Kelsey Expert. Performed By: #### 1 [id number], 0930005, 2010918, [id number] ####[address] [address] Monocytes/100 WBC (Bld) 7.7 % Normal 4.0-14.0 [facility] Comment on above: Order Comment: Order Added by Discern Expert. Performed By: #### 1 [id number], 0872536, 5273009, [id number] ####[facility] [address] [place] [address] Monocytes/Leukocytes Auto (Bld) [Pure # fraction] 0.4 E9/L Normal 0.2-1.0 [facility] Comment on above: Order Comment: Order Added by Discern Expert. Performed By: #### 1 [id number], [id number], 5580920, 9640186 ####[address] [place] [address] Neutrophils/100 WBC (Bld) 47.3 % Normal 36.0-75.0 [facility] Comment on above: Order Comment: Order Added by Discern Expert. Performed By: #### 1 8293754, 7783342, 5717304, 1299677 ####[address] [address] Neutrophils/Leukocyte s Auto (Bld) [Pure # fraction] 2.5 E9/L Normal 2.0-7.5 [facility] Comment on above: Order Comment: Order Added by Discern Expert. Performed By: #### 1 [id number], 8516180, 8843447, [id number] ####[address] [place] [address] BLOOD BANKOrdered By: Mark Alfaro on 01-17-2023 ABO/Rh Retype Interp Negative Invalid Interpretation Code [facility] BB Subsection BMPon 01-17-2023 Anion gap [Moles/Vol] 11 mmol/L Normal 6-16 [facility] Comment on above: Performed By: #### 1 [id number], 4346020, 5071145, 9925999 ####[address] [place] [address] Calcium [Mass/Vol] 9.5 mg/dL Normal 8.9-11.1 [facility] Comment on above: Performed By: #### 1 [id number], 1651455, 9575902, 9115837 ####[facility] [address] [place] [address] Chloride [Moles/Vol] 104 mmol/L Normal 101-111 [facility] Comment on above: Performed By: #### 1 0941062, 3738579, 3792804, 5276617 ####[facility] [address] [place] [address] CO2 [Moles/Vol] 28 mmol/L Normal 21-[address] [facility] Comment on above: Performed By: #### 1 [id number], 8276154, 6770967, 7171234 ####[facility] [address] [place] [address] Creatinine [Mass/Vol] 0.7 mg/dL Normal 0.5-1.3 [facility] Comment on above: Performed By: #### 1 3882848, 9140615, 8555588, 9163232 ####[facility] [address] [place] [address] Glucose [Mass/Vol] 93 mg/dL Normal 55-199 [facility] Comment on above: Result Comment: If t his glucose result represents a fasting glucose, interpretation should refer to the following reference range: 55-99 mg/dL Performed By: #### 1 [id number], 0624531, 0120640, 8812960 ####[facility] [address] [place] [address] Potassium [Moles/Vol] 4.0 mmol/L Normal 3.5-5.3 [facility] Comment on above: Performed By: #### 1 0946162, 5995767, 1635256, 0766093 ####[facility] [address] [place] [address] Sodium [Moles/Vol] 139 mmol/L Normal 135-145 [facility] Comment on above: Performed By: #### 1 2958650, 1991907, 0853205, 7029322 ####[facility] [address] [place] [address] Urea nitrogen [Mass/Vol] 13 mg/dL Normal 5-21 [facility] Comment on above: Performed By: #### 1 [id number], [id number], [id number], [id number] ####[address] [place] [address] Urea nitrogen/Creatinine [Mass ratio] 19 No Units Normal 10-20 [facility] Comment on above: Performed By: #### 1 [id number], [id number], 3527575, 8902102 ####[address] [id number] CBC w/ Auto Diffon 3 Erythrocyte distribution width (RBC) [Ratio] 12.9 % Normal 10.9-14.2 [facility] Comment on above: Performed By: #### 1 [id number], 3082961, 5721146, 4703302 ####[address] [place] [id number] Hematocrit (Bld) [Volume fraction] 38.4 % Normal 34.0-46.0 [facility] Comment on above: Performed By: #### 1 [id number], 2091668, 8214947, 9787711 ####[address] [address] Hemoglobin (Bld) [Mass/Vol] 13.1 g/dL Normal 12.0-16.0 [facility] Comment on above: Performed By: #### 1 1962379, 6730246, 9141622, 8846532 ####[address] [address] MCH (RBC) [Entitic mass] 32.0 pg Normal 27.0-34.0 [facility] Comment on above: Performed By: #### 1 [id number], 8975639, 0451029, 3193236 ####[address] [address] MCHC (RBC) [Mass/Vol] 34.0 g/dL Normal 31.4-36.0 [facility] Comment on above: Performed By: #### 1 3870932, 1338321, 4969931, 7315841 ####[facility] [address] [place] [address] MCV (RBC) [Entitic vol] 94.2 fL Normal 80.0-100.0 [facility] Comment on above: Performed By: #### 1 0777229, 4948423, 1047226, 8224423 ####[address] [place] [address] Platelet mean volume (Bld) [Entitic vol] 8.2 fL Normal 6.4-10.8 [facility] Comment on above: Performed By: #### 1 4362484, 4196586, 4138811, 5357689 ####[address] [address] Platelets (Bld) [#/Vol] 344.0 E9/L Normal 150.0-500.0 [facility] Comment on above: Performed By: #### 1 8197866, 0900937, 6796564, 4090411 ####[address] [address] RBC (Bld) [#/Vol] 4.1 E12/L Low 4.3-5.9 [facility] Comment on above: Performed By: #### 1 7794424, 1948638, 8984862, 6556474 ####[address] [address] WBC corrected for nucl RBC Auto (Bld) [#/Vol] 5.2 E9/L Normal 4.0-11.0 [facility] Comment on above: Performed By: #### 1 7221024, 6173176, 7493524, 3380094 ####[address] [address] CHEMISTRYOrdered By: SYSTEM SYSTEM on 01-17-2023 Anion gap [Moles/Vol] 11 mmol/L Normal 6 - 16 mEq/L [facility] Remisol Calcium [Mass/Vol] 9.5 mg/dL Normal 8.9 - 11. 1 mg/dL [facility] Remisol Chloride [Moles/Vol] 104 mmol/L Normal 101 - 1 11 mmol/L [facility] Remisol CO2 [Moles/Vol] 28 mmol/L Normal 21 - 31 mmol/L [facility] Creatinine [Mass/Vol] 0.7 mg/dL Normal 0.5 - 1.3 mg/dL [facility] Remisol GFR/1.73 sq M.predicted among non-blacks MDRD (S/P/Bld) [Vol rate/Area] 92 mL/min/1.73 m2 Normal >=59mL/min/1 .73 m2 [facility] Chem S Comment on above: Interpretive Data: C hronic kidney disease could be indicated at eGFR's of less than 60 mL/min/1.73m2. Kidney failure is indicated at less than 15 mL/min/1.73m2. Glucose [Mass/Vol] 93 mg/dL Normal 55 - 199 mg/dL [facility] Remisol Comment on above: Interpretive Data: I f this glucose result represents a fasting glucose, interpretation should refer to the following reference range: 55-99 mg/dL Potassium [Moles/Vol] 4.0 mmol/L Normal 3.5 - 5.3 mmol/L [facility] Remisol Sodium [Moles/Vol] 139 mmol/L Normal 135 - 145 mmol/L [facility] Urea nitrogen [Mass/Vol] 13 mg/dL Normal 5 - 21 mg/dL [facility] Remisol Urea nitrogen/Creatinine [Mass ratio] 19 mg/mg Normal 10 - 20 [facility] Remisol Consent for Treatmenton 12-21 Consent for Treatment [id number] .[id number] Normal [facility] HEMATOLOGYOrdered By: SYSTEM SYSTEM on 01-17-2023 Basophils/100 WBC (Bld) 0.9 % Normal 0.0 - 2.0 % [facility] HemeAutoSS Basophils/Leukocytes Auto (Bld) [Pure # fraction] 0.0 E9/L Normal 0.0 - 0.2 E9/L [facility] HemeAutoSS Eosinophils/100 WBC (Bld) 3.4 % Normal 0.0 - 8.0 % [facility] HemeAutoSS Eosinophils/Leukocyte s Auto (Bld) [Pure # fraction] 0.2 E9/L Normal 0.0 - 0.5 E9/L [facility] HemeAutoSS Lymphocytes/100 WBC (Bld) 40.7 % Normal 14.0 - 50.0 % [facility] HemeAutoSS Lymphocytes/Leukocyte s Auto (Bld) [Pure # fraction] 2.1 E9/L Normal 1.0 - 4.0 E9/L [facility] HemeAutoSS Monocytes/100 WBC (Bld) 7.7 % Normal 4.0 - 14.0 % [facility] HemeAutoSS Monocytes/Leukocytes Auto (Bld) [Pure # fraction] 0.4 E9/L Normal 0.2 - 1.0 E9/L [facility] HemeAutoSS Neutrophils/100 WBC (Bld) 47.3 % Normal 36.0 - 75.0 % [facility] HemeAutoSS Neutrophils/Leukocyte s Auto (Bld) [Pure # fraction] 2.5 E9/L Normal 2.0 - 7.5 E9/L [facility] HemeAutoSS HEMATOLOGYOrdered By: Liseth Bustillos on 01-17-2023 Erythrocyte distribution width (RBC) [Ratio] 12.9 % Normal 10.9 - 14.2 % [facility] HemeAutoSS Hematocrit (Bld) [Volume fraction] 38.4 % Normal 34.0 - 46.0 % [facility] HemeAutoSS Hemoglobin (Bld) [Mass/Vol] 13.1 g/dL Normal 12.0 - 16.0 gm/dL [facility] HemeAutoSS MCH (RBC) [Entitic mass] 32.0 pg Normal 27.0 - 34.0 pg [facility] HemeAutoSS MCHC (RBC) [Mass/Vol] 34.0 g/dL Normal 31.4 - 36.0 gm/dL [facility] HemeAutoSS MCV (RBC) [Entitic vol] 94.2 fL Normal 80.0 - 100.0 fL [facility] HemeAutoSS Platelet mean volume (Bld) [Entitic vol] 8.2 fL Normal 6.4 - 10.8 fL [facility] HemeAutoSS Platelets (Bld) [#/Vol] 344.0 E9/L Normal 150.0 - 500.0 E9/L [facility] HemeAutoSS RBC (Bld) [#/Vol] 4.1 E12/L Low 4.3 - 5.9 E12/L [facility] HemeAutoSS WBC corrected for nucl RBC Auto (Bld) [#/Vol] 5.2 E9/L Normal 4.0 - 11.0 E9/L [facility] HemeAutoSS UA With Cult Reflexon 2022 Bilirubin Ql (U) Negative Normal Negative [facility] Comment on above: Performed By: #### 1 [id number] ####[facility] [address] [place] [address] Clarity (U) CLEAR Normal Clear [facility] Comment on above: Performed By: #### 1 [id number] ####[facility] [address] [place] [address] Color (U) YELLOW Normal Yellow [facility] Comment on above: Performed By: #### 1 [id number] ####[address] [address] Epithelial cells.squamous LM.HPF (Urine sed) [#/Area] 0-2 Normal 0-2 [facility] Comment on above: Performed By: #### 1 [id number] ####[facility] [address] [place] [address] Glucose Test strip (U) [Mass/Vol] Negative Normal Negative [facility] Comment on above: Performed By: #### 1 [id number] ####[facility] [address] [place] [address] Hemoglobin Ql (U) Negative Normal Negative [facility] Comment on above: Performed By: #### 1 [id number] ####[facility] [address] [place] [address] Ketones (U) [Mass/Vol] Negative Normal Negative [facility] Comment on above: Performed By: #### 1 9872476 ####[facility] [address] [place] [address] [place].plasma/Lithiu m.RBC (Bld) [Mass ratio] 0-3 Normal 0-3 [facility] Comment on above: Performed By: #### 1 7887616 ####[facility] [address] [place] [address] Nitrite Ql (U) Negative Normal Negative [facility] Comment on above: Performed By: #### 1 [id number] ####[address] [address] pH (U) 6.0 [pH] Invalid Interpretation Code 5.0-9.0 [facility] Comment on above: Performed By: #### 1 [id number] ####[address] [address] Protein (U) [Mass/Vol] Negative Normal Negative [facility] Comment on above: Performed By: #### 1 1051667 ####[address] [address] Specific gravity (U) [Rel density] 1.010 Invalid Interpretation Code 1.005-1.030 [facility] Comment on above: Performed By: #### 1 [id number] ####[address] [address] Type of Urine collection method Clean Catch Normal [facility] Comment on above: Performed By: #### 1 9772087 ####[address] [address] Urobilinogen Qn (U) 0.2 {Mary'U}/dL Normal 0.0-1.0 [facility] Comment on above: Performed By: #### 1 7309865 ####[address] [address] WBC Auto Ql (U) Negative Normal Negative [facility] Comment on above: Performed By: #### 1 1997459 ####[address] [address] WBC LM.HPF (Urine sed) [#/Area] 0-5 Normal 0-5 [facility] Comment on above: Performed By: #### 1 7151489 ####[address] [address] URINALYSISOrdered By: Ninoska Castro on 01-17-2023 Bilirubin Ql (U) Negative (01/17/23 7:54 AM) Normal Negative [facility] UA Auto SS Clarity (U) Clear (01/17/23 7:54 AM) Normal Clear [facility] UA Auto SS Color (U) Yellow (01/17/23 7:54 AM) Normal Yellow [facility] UA Auto SS Epithelial cells.squamous LM.HPF (Urine sed) [#/Area] 0-2 /HPF Normal 0-2/HPF [facility] UA Aut o SS Glucose Test strip (U) [Mass/Vol] Negative (01/17/23 7:54 AM) Normal Negative [facility] UA Auto SS Hemoglobin Ql (U) Negative (01/17/23 7:54 AM) Normal Negative [facility] UA Auto SS Ketones (U) [Mass/Vol] Negative (01/17/23 7:54 AM) Normal Negative [facility] UA Auto SS [place].plasma/Lithiu m.RBC (Bld) [Mass ratio] 0-3 /HPF Normal 0-3/HPF [facility] UA Auto SS Nitrite Ql (U) Negative (01/17/23 7:54 AM) Normal Negative [facility] UA Auto SS pH (U) 6.0 *NA* (01/17/23 7:54 AM) Invalid Interpretation Code 5.0 - 9.0 [facility] UA Auto SS Protein (U) [Mass/Vol] Negative (01/17/23 7:54 AM) Normal Negative [facility] UA Auto SS Specific gravity (U) [Rel density] 1.010 *NA* (01/17/23 7:54 AM) Invalid Interpretation Code 1.005 - 1.030 [facility] UA Auto SS UA Spec Desc Clean Catch (01/17/23 7:54 AM) Normal [facility] UA Auto SS Urobilinogen Qn (U) 0.0083571 {Mary'U}/dL Normal 0.0 - 1.0 EU/dL [facility] UA Auto SS WBC Auto Ql (U) Negative (01/17/23 7:54 AM) Normal Negative [facility] UA Auto SS WBC LM.HPF (Urine sed) [#/Area] 0-5 /HPF Normal 0-5/HPF [facility] UA Auto SS eGFRon 01-17-2023 GFR/1.73 sq M.predicted among non-blacks MDRD (S/P/Bld) [Vol rate/Area] 92 mL/min/1.73 m2 Normal >=59 [facility] Comment on above: Order Comment: Order added by Discern Expert. Result Comment: Adjustment Examiner cass kidney disease could be indicated at eGFR's of less than 60 mL/min/1.73m2. Kidney failure is indicated at less than 15 mL/min/1.73m2. Performed By: #### 1 [id number], 4983439, 3117043, 3089983 ####[facility] [address] [place] [address] Physician Orderon 01-01-2023 Physician Order [id number]#1. 00TIFF Normal [facility] Physician Orderon 12-27-2022 Physician Order [id number]# 1.00TIFF Normal [facility] XR Knee Complete Right*on XR Knee Complete Right* COMPARISON: NONE. RIGHT KNEE FINDINGS: There are no lytic or sclerotic bone lesions. There is no acute fracture or subluxation. There are calcifications of the menisci which may be secondary to prior trauma versus pseudogout. The patella is within normal limits. There are no radiopaque foreign bodies. IMPRESSION: There are calcifications of the menisci which may be secondary to prior trauma versus pseudogout. Report reported and signed by ESDRAS CABALLERO on 06/29/2022 0921 Normal [facility] Specialist CT Sinus w/o Contrast*on CT Sinus w/o Contrast* EXAM: CT of the paranasal sinuses CLINICAL HISTORY: Sinus drainage COMPARISON: None TECHNIQUE: Unenhanced images were obtained through the paranasal sinuses in the axial plane with coronal and sagittal reformats. All CT scans at this facility use dose modulation, iterative reconstruction, and/or weight based dosing when appropriate to reduce radiation dose to as low as reasonably achievable. FINDINGS: Maxillary sinuses: The maxillary sinuses are clear. Sinus outflow tracts are patent. There are bilateral infraorbital (Radha) cells with slight narrowing of the maxillary sinus outflow tract more S1 the right side than left side. Ethmoid sinuses: Ethmoid sinuses are clear. Sphenoid sinuses: The sphenoid sinuses are normally aerated. Sphenoethmoid recesses are patent Frontal sinuses: Frontal sinuses are normally aerated. Frontal recesses are patent. Nasal fossa: There is no septal deviation. There is marked septal deviation toward the right with a prominent septal spur abutting the right inferior nasal turbinate. Saumya bullosa involving the left middle nasal turbinate. Multiple bilateral tonsilloliths in the palatine tonsils consistent with chronic inflammation. Soft tissue density in the right external auditory canal and right tympanic cavity. Further detail limited on the scans. Clinical correlation suggested. IMPRESSION: 1. Mild right infundibular narrowing. 2. Significant septal deviation to the right with prominent septal spur abutting the medial wall of the inferior nasal turbinate. 3. Question soft tissue density/inflammation in the right tympanic cavity. Report reported and signed by Diogenes Luna on 04/26/2022 1625 Normal [facility] Specialist XR Chest 2 Views*on 04-21-19 23 XR Chest 2 Views* CLINICAL HISTORY: Cough. Choking. COMPARISON: None. TECHNIQUE: Chest radiographs, PA and lateral RESULT: No consolidation. Eventration right hemidiaphragm. No pleural effusion. No pneumothorax. Normal pulmonary vascular pattern. Normal cardiomediastinal silhouette.] No acute osseous findings. Degenerative changes spine and shoulders. Partially imaged hardware lumbar spine on the lateral view. Narrowing of the acromiohumeral intervals bilaterally, associated with chronic rotator cuff arthropathy/tearing. IMPRESSION: No acute radiographic abnormality. Report reported and signed by Tima Foy on 04/20/2022 1449 Normal [facility] Specialist COVID-19 Detected/Not Detect edOrdered By: Elena Curtis on 04-11-2022 SARS-CoV-2 (COVID-19) RNA LD+non-probe Ql (Nph) Not detected Not Detecte [facility] Comment on above: This is a duplicate RP2.1 COVID (PCR) result to be used for statistical tracking purpose only. Respiratory pathogens DNA an d RNA panel - Nasopharynx by LD with non-probe detectionOrdered By: Elena Curtis on 04-11-2022 Respiratory pathogens DNA and RNA panel LD+non-probe (Nph) [facility] COVID-19 Detected/Not Detect edOrdered By: Elena Curtis on 03-21-2022 SARS-CoV-2 (COVID-19) RNA LD+non-probe Ql (Nph) Not detected Not Detecte [facility] Comment on above: This is a duplicate RP2.1 COVID (PCR) result to be used for statistical tracking purpose only. Respiratory pathogens DNA an d RNA panel - Nasopharynx by LD with non-probe detectionOrdered By: Elena Curtis on 03-21-2022 Respiratory pathogens DNA and RNA panel LD+non-probe (Nph) [facility] POINT OF CARE GLUCOSEon 11-19 Glucose [Mass/Vol] 126 mg/dL Critically high 74-106 [facility] Comment on above: Performed By: #### P OCGLUC #### [facility] [address] [place], [place] [address] Dr. Derek Palacios Glucose [Mass/Vol] 99 mg/dL Normal 74-106 [facility] Comment on above: Performed By: #### P OCGLUC ####[facility] [address] [place], [place] [address]X[address]. [address] CT FOOT RT WO CONon 12-08-19 CT FOOT RT WO CON EXAMINATION: CT FOOT RT WO CON HISTORY: Idiopathic osteoarthritis COMPARISON: No relevant comparison available. TECHNIQUE: Multi-planar CT images were created without IV contrast. Dose reduction techniques were achieved by using automated exposure control and/or adjustment of mA and/or kV according to patient size and/or use of iterative reconstruction technique. FINDINGS: BONES: No acute fracture or dislocation. Moderate hallux valgus. Moderate to severe diffuse degenerative changes with joint space narrowing marginal osteophyte formation and subchondral cystic changes most significant along the tarsometatarsal joints. SOFT TISSUES: Negative. No visible soft tissue swelling. EFFUSION: None visible. OTHER: Negative. IMPRESSION: Moderate to severe diffuse degenerative osteoarthritis most significant at the tarsometatarsal joints Electronically authenticated by: BARRETT VASQUEZ Date: 2021-12-07 21:05 Normal [facility] Covid-19 PCR (CVDTBH)on 11-19 SARS-CoV-2 (COVID-19) RNA LD+probe Ql (Unsp spec) Not detected Normal NOT DETECTED [facility] Comment on above: Result Comment: This test is not yet approved or cleared by the [place] FDA. When there are no FDA-approved or cleared tests available, and other criteria are met, FDA can make tests available under an emergency access mechanism called an Emergency Use Authorization (EUA). The EUA for this test is supported by the Gauge And Weigh Machine Operator of Health and Human Service's (HHS's) declaration that circumstances exist to justify the emergency use of in vitro diagnostics for the detection and/or diagnosis of the virus that causes COVID-19. This EUA will remain in effect (meaning this test can be used) for the duration of the COVID-19 declaration justifying emergency of IVDs, unless it is terminated or revoked by FDA (after which the test may no longer be used). When diagnostic testing is negative, the possibility of a false negative should be considered in the context of a patient's recent exposures and the presence of clinical signs and symptoms consistent with SARS-CoV-2. Performed By: #### C VDTB #### [facility] [address] [place] [address] [address] Derek Palacios CBC AUTO DIFFon 11-29-2021 BASO # 0.0 103/ul Normal 0.0-0.1 [facility] Comment on above: Performed By: #### C BC ####[facility] [address] [place] [address]Dr. Derek Palacios Basophils/100 WBC (Bld) 0.7 % Normal 0.2-2.0 [facility] Comment on above: Performed By: #### C BC ####[facility] [address] [place] [address]Dr. Derek Palacios EO # 0.2 103/ul Normal 0.0-0.7 [facility] Comment on above: Performed By: #### C BC ####[facility] [address] [place] [address]Dr. Derek Palacios Eosinophils/100 WBC (Bld) 3.6 % Normal 0.9-7.0 [facility] Comment on above: Performed By: #### C BC ####[facility] [address] [place] [address]Dr. Derek Palacios Erythrocyte distribution width (RBC) [Ratio] 12.6 % Normal 11.0-15.0 [facility] Comment on above: Performed By: #### C BC ####[facility] [address] [place] [address]Dr. Derek Palacios Hematocrit (Bld) [Volume fraction] 40.8 % Normal 36.0-48.0 [facility] Comment on above: Performed By: #### C BC ####[facility] [address] [place] [address]DrNehemiah Palacios Hemoglobin (Bld) [Mass/Vol] 13.2 g/dL Normal 12.0-16.0 [facility] Comment on above: Performed By: #### C BC ####[facility] [address] [place], [place] [address]DrNehemiah Palacios IG # 0.01 10e3/ul Normal 0.00-0.03 [facility] Comment on above: Performed By: #### C BC ####[facility] [address] [place], [place] [address]DrNehemiah Palacios IG % 0.2 % Normal 0.0-0.5 [facility] Comment on above: Performed By: #### C BC ####[facility] [address] [place], [place] [address]DrNehemiah Palacios LYMPH # 1.7 103/ul Normal 1.2-3.8 [facility] Comment on above: Performed By: #### C BC ####[facility] [address] [place], [place] [address]DrNehemiah Palacios Lymphocytes/100 WBC (Bld) 29.8 % Normal 20.5-60.0 [facility] Comment on above: Performed By: #### C BC ####[facility] [address] [place], [place] [address]DrNehemiah Palacios MANUAL DIFF REQ NO Normal [facility] Comment on above: Performed By: #### C BC ####[facility] [address] [place] [address]DrNehemiah Palacios MCH (RBC) [Entitic mass] 31.1 pg Normal 26.7-34.0 [facility] Comment on above: Performed By: #### C BC ####[facility] [address] [place], [place] [address]DrNehemiah Palacios MCHC (RBC) [Mass/Vol] 32.4 g/dL Normal 29.9-35.2 [facility] Comment on above: Performed By: #### C BC ####[facility] [address] [place] [address]DrNehemiah Palacios MCV (RBC) [Entitic vol] 96.0 fL Normal 81.0-99.0 [facility] Comment on above: Performed By: #### C BC ####[facility] [address] [place] [address]DrNehemiah Palacios MONO # 0.5 103/ul Normal 0.3-0.8 [facility] Comment on above: Performed By: #### C BC ####[facility] [address] [place] [address]DrNehemiah Palacios Monocytes/100 WBC (Bld) 8.8 % Normal 1.7-12.0 [facility] Comment on above: Performed By: #### C BC ####[facility] [address] [place], [place] [address]DrNehemiah Palacios NEUT # 3.3 103/ul Normal 1.4-6.5 [facility] Comment on above: Performed By: #### C BC ####[facility] [address] [place], [place] [address]DrNehemiah Palacios Neutrophils/100 WBC (Bld) 56.9 % Normal 43.0-75.0 [facility] Comment on above: Performed By: #### C BC ####[facility] [address] [place], [place] [address]DrNehemiah Palacios Platelet mean volume (Bld) [Entitic vol] 8.9 fL Critically low 9.5-13.5 [facility] Comment on above: Performed By: #### C BC ####[facility] [address] [place], [place] [address]DrNehemiah Palacios PLT 290 103/ul Normal 150-450 [facility] Comment on above: Performed By: #### C BC ####[facility] [address] [place] [address]DrNehemiah Palacios RBC 4.25 106/ul Normal 4.20-5.40 [facility] Comment on above: Performed By: #### C BC ####[facility] [address] [place] [address]Dr. Derek Palacios WBC 5.8 103/ul Normal 4.0-11.0 [facility] Comment on above: Performed By: #### C BC ####[facility] [address] [place] [address]Dr. Derek Palacios PROF CHEM 8 (BAS METB)on Anion gap [Moles/Vol] 8.9 mmol/L Normal [facility] Comment on above: Performed By: #### B MP #### [facility] [address] [place] [address] Dr. Derek Palacios Calcium [Mass/Vol] 9.4 mg/dL Normal 8.5-10.1 [facility] Comment on above: Performed By: #### B MP #### [facility] [address] [place] [address] Dr. Derek Palacios Chloride [Moles/Vol] 105 mmol/L Normal 98-107 [facility] Comment on above: Performed By: #### B MP #### [facility] [address] [place] [address] [address] Derek Palacios CO2 [Moles/Vol] 30.4 mmol/L Normal 21.0-32.0 [facility] Comment on above: Performed By: #### B MP #### [facility] [address] [place] [address] [address] Derek Palacios Creatinine [Mass/Vol] 0.71 mg/dL Normal 0.55-1.02 [facility] Comment on above: Performed By: #### B MP #### [facility] [address] [place] [address] Dr. Derek Palacios EGFR-AF MALAGASY >60 Normal >=60 [facility] Comment on above: Performed By: #### B MP #### [facility] [address] [place] [address] Dr. Derek Palacios EGFR-NON AF MALAGASY >60 Normal >=60 [facility] Comment on above: Performed By: #### B MP #### [facility] [address] [place] [address] [address] Derek Palacios Glucose [Mass/Vol] 95 mg/dL Normal 74-106 [facility] Comment on above: Performed By: #### B MP #### [facility] [address] [place] [address] [address] Derek Palacios Potassium [Moles/Vol] 4.3 mmol/L Normal 3.5-5.1 [facility] Comment on above: Performed By: #### B MP #### [facility] [address] [place] [address] [address] Derek Palacios Sodium [Moles/Vol] 140 mmol/L Normal 136-145 [facility] Comment on above: Performed By: #### B MP #### [facility] [address] [place] [address] [address] Derek Palacios Urea nitrogen [Mass/Vol] 15.0 mg/dL Normal 7.0-18.0 [facility] Comment on above: Performed By: #### B MP #### [facility] [address] [address] [address] eDrek Palacios Urea nitrogen/Creatinine [Mass ratio] 21.1 mg/mg Normal [facility] Comment on above: Performed By: #### B MP #### [facility] [address] [address] [address] Derek Palacios COVID-19 Positive/NegativeOr dered By: Kevon Queen on 11-03-2021 SARS-CoV-2 (COVID-19) N gene LD+probe Ql (Resp) Negative Negative [facility] Comment on above: Testing for SARS-CoV -2 by RT-PCR This test was developed and its performance characteristics determined by [employer] and validated at the [facility]. This test has not been FDA cleared or approved. This test has been authorized by FDA under an Emergency Use Authorization (EUA). This test has been validated in accordance with the FDA's Guidance Document (Policy for Diagnostics Testing in Laboratories Certified to Perform High Complexity Testing under CLIA prior to Emergency Use Authorization for Coronavirus Disease-2019 during the Public Health Emergency) issued on May 21, 2019. This test is only authorized for the duration of time the declaration that circumstances exist justifying the authorization of the emergency use of in vitro diagnostic tests for detection of SARS-CoV-2 virus and/or diagnosis of COVID-19 infection under section 564(b)(1) of the Act, 21 U.S.C. 360bbb-3(b)(1), unless the authorization is terminated or revoked sooner. Testing for SARS-CoV -2 by RT-PCRThis test was developed and its performance characteristics determined by [employer] and validated at the [facility]. This test has not been FDA cleared or approved. This test has been authorized by FDA under an Emergency Use Authorization (EUA). This test has been validated in accordance with the FDA's Guidance Document (Policy for Diagnostics Testing in Laboratories Certified to Perform High Complexity Testing under CLIA prior to Emergency Use Authorization for Coronavirus Disease-2019 during the Public Health Emergency) issued on May 21, 2019. This test is only authorized for the duration of time the declaration that circumstances exist justifying the authorization of the emergency use of in vitro diagnostic tests for detection of SARS-CoV-2 virus and/or diagnosis of COVID-19 infection under section 564(b)(1) of the Act, 21 U.S.C. 360bbb-3(b)(1), unless the authorization is terminated or revoked sooner. Vital Signs Date Time Vital Sign Value Performing Clinician Facility 01-17-2023 07:54-0500 Diastolic blood pressure 85 mm[Hg] [employer] [facility] 01-17-2023 07:54-0500 Heart rate 85 /min [employer] [facility] 01-17-2023 07:54-0500 Mean blood pressure 99 mm[Hg] [employer] [facility] 01-17-2023 07:54-0500 Systolic blood pressure 126 mm[Hg] [employer] [facility] 01-17-2023 07:53-0500 Heart rate 89 /min Bishnu June [facility] 01-17-2023 07:53-0500 SaO2% (BldA) [Mass fraction] 94 % Bishnu June [facility] 01-17-2023 07:53-0500 Diastolic blood pressure 85 mm[Hg] Bishnu June [facility] 01-17-2023 07:53-0500 Mean blood pressure 98 mm[Hg] Bishnu June [facility] 01-17-2023 07:53-0500 Systolic blood pressure 124 mm[Hg] Bishnu June [facility] 01-17-2023 07:53-0500 Respiratory rate 16 /min Bishnu June [facility] 11-07-2021 09:13-0400 Diastolic blood pressure 70 mm[Hg] DO Chaitanya Benjaminafshanfang Work Phone: [facility] 11-07-2021 09:13-0400 Heart rate 61 /min DO Chaitanya Benjaminafshanfang Work Phone: [facility] 11-07-2021 09:13-0400 Respiratory rate 16 /min DO Chaitanya Benjaminafshanfang Work Phone: [facility] 11-07-2021 09:13-0400 SaO2% (BldA) [Mass fraction] 99 % DO Chaitanya Benjaminafshanfang Work Phone: [facility] 11-07-2021 09:13-0400 Systolic blood pressure 116 mm[Hg] DO Chaitanya Benjaminlitzy Work Phone: [facility] 11-07-2021 07:21-0400 Body height 170.18 cm DO Chaitanya Benjaminlitzy Work Phone: [facility] 11-07-2021 07:21-0400 Body weight 70.3 kg DO Chaitanya Hector Boss Work Phone: [facility] 03-22-2021 11:00-0500 Body height 170.18 cm Kevon Queen Other [employer] Other 03-22-2021 11:00-0500 Body mass index (BMI) [Ratio] 24.74 kg/m2 Kevon Queen Other [employer] Other 03-22-2021 11:00-0500 Body weight 71.67 kg Kevon Queen Other [employer] Other 12-07-2020 10:15-0400 Body height 170.18 cm Kevon Queen Other [employer] Other 12-07-2020 10:15-0400 Body mass index (BMI) [Ratio] 24.74 kg/m2 Kevon Queen Other [employer] Other 12-07-2020 10:15-0400 Body weight 71.67 kg Kevon Queen Other [employer] Other Encounters Encounter Date Encounter Type Care Provider Facility Start: 05-17-2023 End: 05-17-2023 ambulatory Chaitanya Boss Facility:[facility] Start: 05-16-2023 End: 05-16-2023 ambulatory BISHNU JUNE Not Available Start: 04-22-2023 End: 04-22-2023 ambulatory SHAKA WATKINS Not Available Start: 04-11-2023 End: 04-11-2023 ambulatory ANGELITA Flores [facility] [facility] Not Available Start: 04-08-2023 End: 04-08-2023 ambulatory ANGELITA L [facility] [facility] Not Available Start: 04-04-2023 Bamboo flowsheet Angelita Flores [facility] Work Phone: [facility] Start: 04-04-2023 Bamboo flowsheet Angelita L [facility] Work Phone: [facility] Start: 04-04-2023 End: 04-04-2023 ambulatory ANGELITA L [facility] [facility] Not Available Start: 04-04-2023 End: 04-04-2023 ambulatory Angelita L [facility] Work Phone: [facility] Comment on above: Primary localized os teoarthritis of right knee (Primary Dx); Status post total knee replacement, right Start: 04-01-2023 Bamboo flowsheet Angelita L [facility] Work Phone: [facility] Start: 04-01-2023 Bamboo flowsheet Angelita L [facility] Work Phone: [facility] Start: 04-01-2023 End: 04-01-2023 ambulatory Angelita L [facility] Work Phone: [facility] Comment on above: Primary localized os teoarthritis of right knee (Primary Dx); Status post total knee replacement, right Start: 03-28-2023 End: 03-28-2023 ambulatory ANGELITA L [facility] [facility] Not Available Start: 03-25-2023 End: 03-25-2023 ambulatory ANGELITA L [facility] [facility] Not Available Start: 03-21-2023 End: 03-21-2023 ambulatory ANGELITA L [facility] [facility] Not Available Start: 03-18-2023 End: 03-18-2023 ambulatory ANGELITA L [facility] [facility] Not Available Start: 03-15-2023 End: 03-15-2023 ambulatory ANGELITA L [facility] [facility] Not Available Start: 03-14-2023 End: 03-14-2023 ambulatory BISHNU JUNE Not Available Start: 03-11-2023 End: 03-11-2023 ambulatory ANGELITA L [facility] [facility] Not Available Start: 03-07-2023 End: 03-07-2023 ambulatory HAO SAUER Not Available Start: 03-04-2023 End: 03-04-2023 ambulatory ANGELITA L [facility] [facility] Not Available Start: 02-28-2023 End: 02-28-2023 ambulatory ANGELITA L [facility] [facility] Not Available Start: 02-25-2023 End: 02-25-2023 ambulatory ANGELITA L [facility] [facility] Not Available Start: 02-22-2023 End: 02-22-2023 ambulatory ANGELITA L [facility] [facility] Not Available Start: 02-20-2023 End: 02-20-2023 ambulatory ANGELITA L [facility] [facility] Not Available Start: 02-14-2023 End: 02-14-2023 ambulatory BISHNU JUNE Not Available Start: 01-30-2023 End: 01-31-2023 ambulatory Bishnu June Facility:[facility] Start: 01-28-2023 End: 01-28-2023 ambulatory ANGELITA L [facility] [facility] Not Available Start: 01-17-2023 End: 01-17-2023 ambulatory BISHNU JUNE Not Available Start: 01-17-2023 End: 01-18-2023 ambulatory Bishnu June Facility:[facility] Start: 01-17-2023 End: 01-17-2023 Patient encounter procedure Bishnu June [facility] Start: 08-08-2022 End: 08-08-2022 ambulatory Kevon Queen Other [employer] Other Start: 08-08-2022 Telephone encounter Kevon warren [facility] Start: 07-18-[address] Josue BOSS Faci lity:[facility] Start: 05-31-2022 End: 05-31-2022 ambulatory Kevon Queen Other [employer] Other Start: 05-31-2022 Telephone encounter Kevon warren [facility] Start: 05-24-2022 End: 05-24-2022 ambulatory Kevon Queen Other [employer] Other Start: 05-24-2022 Telephone encounter Kevon warren [facility] Start: 05-11-2022 End: 05-11-2022 ambulatory DO Chaitanya Leach Cassidylitzy Work Phone: [facility] Work Phone: Start: 05-11-2022 End: 05-11-2022 Patient encounter procedure DO Chaitanya Benjaminlitzy Work Phone: [facility] Work Phone: Start: 04-11-2022 End: 04-11-2022 Patient encounter procedure DO Chaitanya Benjaminlitzy Work Phone: [facility]-Lab [facility] Start: 04-04-2022 End: 04-05-[address] AISHWARYA STEIN Facility:[facility] Start: 03-21-2022 End: 03-21-2022 Patient encounter procedure DO Chaitanya Boss Work Phone: [facility] Start: 02-27-2022 End: 02-28-[address] Josue BOSS Facility:[facility] Start: 01-23-2022 End: 01-24-[address] Josue BOSS Facility:[facility] Start: 01-02-2022 End: 01-03-[address] Josue BOSS Facility:[facility] Start: 12-13-2021 End: 12-13-[address] Josue BOSS Facility:[facility] Start: 12-11-2021 End: 12-12-[address] BRENDAN DOLAN . Facility:[facility] Start: 12-10-2021 Encounter for preprocedural laboratory examination [facility] Start: 12-07-2021 End: 12-08-[address] Josue BOSS Facility:[facility] Start: 12-07-2021 End: 12-08-2021 Encounter for preprocedural laboratory examination DR Josue BOSS Facility:[facility] Start: 12-06-2021 Encounter for other preprocedural examination [facility] Start: 12-06-2021 Encounter for preprocedural cardiovascular examination [facility] Start: 12-05-2021 End: 12-05-2021 ambulatory DO Chaitanya Boss Work Phone: [facility] Work Phone: Start: 12-05-2021 End: 12-05-2021 Patient encounter procedure DO Chaitanya Hector Benjaminlitzy Work Phone: [facility] [place] [facility] Start: 11-29-2021 End: 11-30-[address] Josue BOSS Facility: Start: 11-21-2021 ([facility]3] C Vac) [facility]3] Co vid Vaccine Ellyn Zacht [facility] Start: 11-21-2021 End: 11-21-2021 ambulatory DO Chaitanya Boss Work Phone: [employer] Other Start: 11-21-2021 End: 11-21-2021 Patient encounter procedure DO Chaitanya Leach Cassidyl[employer]zy Work Phone: [facility] Start: 11-07-2021 End: 11-07-2021 Admission to same day surgery center DO Chaitanya Leach Cassidylitzy Work Phone: [facility] Start: 11-03-2021 End: 11-03-2021 Patient encounter procedure DO Chaitanya Boss Work Phone: [facility]-Pre-Surgical Testing Start: 09-19-2021 End: 09-19-2021 Discharged Recurring DO Chaitanya Boss Work Phone: [facility] [place] Start: 09-05-2021 End: 09-05-2021 Patient encounter procedure DO Chaitanya Boss Work Phone: [facility] [place] [facility] Start: 03-22-2021 End: 03-22-2021 ambulatory Kevon Queen Other [employer] Other Start: 03-22-2021 Office outpatient vi sit 15 minutes Kevon Queen [facility] Start: 03-09-2021 End: 03-09-2021 ambulatory Kevon Queen Other [employer] Other Start: 03-09-2021 Telephone encounter Kevon Weavercorinna ck [facility] Start: 12-27-2020 ([facility]3] C Vac) [facility]3] Co vid Vaccine Ellyn Cerda [facility] Start: 12-27-2020 End: 12-27-2020 ambulatory Ellyn Cerda Other [employer] Other Start: 12-07-2020 Office outpatient vi sit 15 minutes Kevon Queen [facility] Start: 05-01-2013 End: 05-01-2013 Refill Barrett Gallego MD Work Phone: [facility] Comment on above: Refill Request Start: 04-05-2011 End: 04-05-2011 Refill Jorge Craig (Fel) Work Phone: Orthopaedics Comment on above: Refill Request Procedures Date Procedure Procedure Detail Performing Clinician Start: 05-11-2022 End: 05-11-2022 Screening mammography of bilateral breasts DO Chaitanya Boss Work Phone: Start: 04-11-2022 Respiratory Panel (PCR) DO Chaitanya Boss Work Phone: Start: 03-21-2022 Respiratory Panel (PCR) DO Chaitanya Boss Work Phone: Start: 12-05-2021 X-ray of right foot DO Chaitanya Boss Work Phone: Start: 11-07-2021 Esophagogastroduodenoscopy DO Chaitanya Boss Work Phone: Start: 09-05-2021 X-ray of right foot DO Chaitanya Boss Work Phone: Start: 06-23-2015 Left shoulder arthroscopic rotator cuff repair 1 Bishnu June Comment on above: Arthroscopic biceps tenodesis, Arthrosco pic subacromilal decompression ,Extensive debridement Left shoulder glenoid labrum tear, dense subacronial bursititis with glelnhumeral chondroplasty debridement biceps partial thickness tear Lateral clavicle resection. Start: 04-23-2013 bone spur left foot Bishnu June Start: 11-07-2012 interstim bladder stimulator insertion Bishnu June Start: 11-06-2012 Colonoscopy Angelita [facility] Work Phone: Start: 11-06-2012 Colonoscopy Bishnu June Start: 04-05-2011 Excision of bunion Bishnu June Comment on above: and heel spur removal Start: 05-19-2010 cmc arthroplasty left hand Bishnu June Start: 10-19-2006 cmc arthroplasty right hand Bishnu June Decompression of median nerve Bishnu June Comment on above: bilateral H/O: hysterectomy Bishnu Lilian elliott spinal lumbar fusion 4 Bishnu June Comment on above: 04/2003, 03/2009 Plan of Treatment Date Care Activity Detail Author Start: 08-06-2023 End: 08-06-2023 Patient encounter procedure 08/06/2023 10:15 AM EDT Office Visit [facility] [address] [place] [address] Bishnu June DO [address] [place] [address] [facility] Start: 05-12-2023 Screening for malign ant neoplasm of breast Mammogram [facility] Start: 04-22-2023 End: 04-22-2023 Patient encounter procedure 04/22/2023 12:15 PM EST Office Visit [facility] [address] [place] [id number] Shaka Watkins, [address] [place] [address] [facility] Start: 04-11-2023 End: 04-11-2023 ambulatory 04/11/2023 10:30 AM EST Treatment [facility] [address] [place] [address] Angelita Coulter, PT [address] [place] [address] [facility] Start: 04-08-2023 End: 04-08-2023 ambulatory 04/08/2023 1:00 PM EST Treatment [facility] [address] [place] [address] Angelita Coulter, PT [address] [place] [address] [facility] Start: 04-04-2023 End: 04-04-2023 ambulatory [facility] Comment on above: Arrived Start: 04-01-2023 End: 04-01-2023 ambulatory 04/01/2023 12:00 PM EST Treatment [facility] [address] [place] [address] Angelita Coulter, PT [address] [place] [address] Arrived [facility] PT Comment on above: Arrived Start: 11-06-2022 Screening for malign ant neoplasm of colon [facility] Start: 11-07-2021 [facility] Start: 10-19-2020 Influenza vaccination INFLUENZ A (Season Ended) [facility] Start: 04-17-2016 DIABETES SCREEN DIABETES SCREEN [facility] Start: 01-12-2016 ADVANCE DIRECTIVE DISCUSSION ADVANCE DIRECTIVE DISCUSSION [facility] Start: 01-12-2016 BONE DENSITY BONE DENSITY [facility] Start: 01-12-2016 PNEUMOVAX AGE 65 AND OVER WITH 5YR LOOKBACK (#1) PNEUMOVAX AGE 65 AND OVER WITH 5YR LOOKBACK (#1) [facility] Start: 2001 Screening for malign ant neoplasm of colon [facility] Start: 2001 SHINGRIX VACCINE (1 of 2) SHINGRIX VACCINE (1 of 2) [facility] Start: 01-12-1996 LIPID SCREEN LIPID SCREEN [facility] Start: 1991 Mammography MAMMOGRAM [facility] Start: 1970 Urine microalbumin profile DTAP,TDAP,TD (1 - Tdap) [facility] Start: 1969 HEPATITIS C SCREENING HEPATITIS C SC REENING [facility] Start: 1963 Adult depression screening assessment DEPRESSION SCREENING [facility] Start: 1950 Medicare Annual Well ness (AWV) Medicare Annual Wellness (AWV) [facility] Start: 1950 Screening for malign ant neoplasm of colon [facility] Patient Education Hiatal Hernia Esophageal Dilation [facility] Work Phone: Immunizations Immunization Date Immunization Notes Care Provider Alethea hager 01-03-2023 influenza, seasonal, injectable Angelita [facility] Work Phone: [facility] 11-28-2021 Influenza, Seasonal, Quadrivalent, Adjuvanted Angelita [facility] Work Phone: [facility] 11-21-2021 COVID-19 Moderna (BIvalent) Ellyn Fitt Other [employer] [facility] [employer] Other 12-27-2020 COVID-19 Moderna Ellyn Fitt Other [employer] [facility] [employer] Other 11-22-2020 Influenza, Seasonal, Quadrivalent, Adjuvanted Angelita [facility] Work Phone: [facility] 05-20-2020 COVID-19 mRNA-1273 (Moderna) DO Chaitanya Boss Work Phone: [facility] 04-19-2020 COVID-19 mRNA-1273 (Moderna) DO Chaitanya Boss Work Phone: [facility] 11-18-2019 influenza, injectabl e, quadrivalent, preservative free Angelita [facility] Work Phone: [facility] 12-02-2018 influenza, injectabl e, madin jenae canine kidney, preservative free Angelita [facility] Work Phone: [facility] 12-10-2017 influenza, injectabl e, quadrivalent, contains preservative Angelita [facility] Work Phone: [facility] 05-10-2017 pneumococcal conjuga te vaccine, 13 valent Angelita [facility] Work Phone: [facility] 11-26-2016 influenza, injectabl e, madin jenae canine kidney, preservative free Angelita [facility] Work Phone: [facility] 02-02-2016 pneumococcal polysaccharide vaccine, 23 valent Angelita [facility] Work Phone: [facility] 12-04-2015 seasonal influenza, intradermal, preservative free Angelita [facility] Work Phone: [facility] 11-24-2015 influenza, injectabl e, quadrivalent, contains preservative Angelita [facility] Work Phone: [facility] 12-03-2014 influenza, seasonal, injectable, preservative free Angelita [facility] Work Phone: [facility] 11-18-2013 influenza, seasonal, injectable, preservative free Angelita [facility] Work Phone: [facility] 11-20-2012 seasonal influenza, intradermal, preservative free Angelita [facility] Work Phone: [facility] 01-01-2012 influenza, seasonal, injectable, preservative free Angelita [facility] Work Phone: [facility] Payers Date Payer Category Payer Self-pay [id number] 2020 Unknown [employer] [id number] 2020-Present [address] [place] [address] [id number] 2011 Medicare MEDICARE MEDICAR E PART B [id number] 2011-Present [address] [address] [place] [address] Medicare [id number] 2011 Unknown ANTHEM BLUE CROS S AND BLUE SHIELD [employer] [id number] 2011-2018 PPO [id number] 2011 Unknown [employer]M BLUE CARD PPO [id number] 2011-2011 PPO [id number] 2011 Unknown [employer]M BLUE CARD PPO [id number] 2011-2011 PPO [id number] 1959 Medicare [id number] [id number] 1959 Unknown [id number] 2.16.840.1.489172.19 1951 Unknown [id number] 2.16.840.1.054934.3.579.2.593 1951 Unknown [id number] 2.16.840.1.904067.3.579.2.593 1951 Unknown [id number] 2.16.840.1.931674.3.579.2.593 1951 Unknown [id number] 2.16.840.1.122888.3.579.2.593 1951 Unknown [id number] 2.16.840.1.303567.3.579.2.593 1951 Unknown [id number] 2.16.840.1.209621.3.579.2.593 1951 Unknown [id number] 2.16.840.1.899379.3.579.2.593 1951 Unknown [id number] 2.16.840.1.548073.3.579.2.593 1951 Unknown [id number] 2.16.840.1.242322.3.579.2.593 1951 Unknown [id number] 2.16.840.1.649886.3.579.2.593 1951 Unknown [id number] 2.16.840.1.276415.3.579.2.727 1951 Unknown [id number] 2.16.840.1.939840.3.579.2.727 1951 Unknown [id number] 2.16.840.1.890672.3.579.2.1259 1951 Unknown [id number] 2.16.840.1.665237.3.579.2.1259 1951 Unknown [id number] 2.16.840.1.710418.3.579.2.1259 1951 Unknown [id number] 2.16.840.1.035088.3.579.2.1259 1951 Unknown [id number] 2.16.840.1.248274.3.579.2.1259 1951 Unknown [id number] 2.16.840.1.830853.3.579.2.1259 1951 Unknown [id number] 2.16.840.1.621674.3.579.2.1259 1951 Unknown [id number] 2.16.840.1.915344.3.579.2.125 1951 Unknown [id number] 2.16.840.1.729602.3.579.2.1258 1951 Unknown [id number] 2.16.840.1.126078.3.579.2.125 1951 Unknown [id number] 2.16.840.1.005047.3.579.2.125 1951 Unknown [id number] 2.16.840.1.194324.3.579.2.1258 1951 Unknown [id number] 2.16.840.1.934546.3.579.2.1258 1951 Unknown [id number] 2.16.840.1.736494.3.579.2.1258 1951 Unknown [id number] 2.16.840.1.282788.3.579.2.125 1951 Unknown [id number] 2.16.840.1.420464.3.579.2.1258 1951 Unknown [id number] 2.16.840.1.551246.3.579.2.125 1951 Unknown [id number] 2.16.840.1.731843.3.579.2.1258 1951 Unknown [id number] 2.16.840.1.113027.3.579.2.125 1951 Unknown [id number] 2.16.840.1.020464.3.579.2.1258 1951 Unknown [id number] 2.16.840.1.489254.3.579.2.125 1951 Unknown [id number] 2.16.840.1.287829.3.579.2.125 1951 Unknown [id number] 2.16.840.1.982889.3.579.2.1259 1951 Unknown [id number] 2.16.840.1.989881.3.579.2.1259 1951 Unknown [id number] 2.16.840.1.107715.3.579.2.1259 1951 Unknown [id number] 2.16.840.1.716190.3.579.2.1259 Unknown [id number] 2.16.840.1.889236.3.579.2.531 Social History Date Type Detail Facility Start: 03-23-2011 End: 07-11-2022 Tobacco smoking status NMIS Never smoker [facility] Start: 03-23-2011 End: 07-11-2022 Tobacco use and exposure Never used [facility] Start: 03-23-2011 End: 04-17-2013 Alcohol intake Current drinker of alcohol (finding) [facility] Start: 03-23-2011 End: 07-11-2022 Alcohol intake [facility] Start: 1950 Sex Assigned At Not on file [facility] Start: 07-11-2022 End: 03-14-2023 Sex Assigned At [facility] Start: 1950 Sex Assigned At Female [facility] Tobacco smoking status No Smoking Status Entered [facility] Start: 03-14-2023 Alcohol intake Ex-drinker (finding) [facility] Start: 10-17-2022 Alcohol Comment caffeine intak e: 1-2 cups per day [facility] NEGATED: Highlighted rowStart: NINF History of tobacco use Passive smoker [facility] Medical Equipment Procedure Code Equipment Code Equipment Origin al Text Equipment Identifier Dates Hysterectomy, vaginal, total, with laparoscopy assistance if indicated [id number] FDA Start: 04-30-2019 Hysterectomy, vaginal, total, with laparoscopy assistance if indicated [id number] FDA Start: 04-30-2019 Hysterectomy, vaginal, total, with laparoscopy assistance if indicated [id number] FDA Start: 04-30-2019 Hysterectomy, vaginal, total, with laparoscopy assistance if indicated [id number] FDA Start: 04-30-2019 Hysterectomy, vaginal, total, with laparoscopy assistance if indicated [id number] FDA Start: 04-30-2019 EGD, with Das pH monitoring device placement CAPSULES DAS W/ DELIVERY FDA Start: 05-28-2018 EGD, with Das pH monitoring device placement CAPSULES DAS W/ DELIVERY FDA Start: 05-28-2018 EGD, with Das pH monitoring device placement CAPSULES DAS W/ DELIVERY FDA Start: 05-28-2018 EGD, with Das pH monitoring device placement CAPSULES DAS W/ DELIVERY FDA Start: 05-28-2018 EGD, with Das pH monitoring device placement CAPSULES DAS W/ DELIVERY FDA Start: 05-28-2018 Bone Plexur Flex - [id number] Start: 04-05-2011 Comment on above: Description: PLEXUR Graft Bn Infs Rh bmp-2 2.8ml - [id number] Start: 04-23-2013 Comment on above: Description: SOFAMOR Tmt Plate Flat [id number] Start: 04-05-2011 Comment on above: Description: TMT JOELLE TE FLAT Mya-Jv-R-Kind [place] plant - [id number] Start: 04-05-2011 Comment on above: Description: CANNULA JAGRUTI SCREW Gto-We-Q-Kind [employer] plant - [id number] Start: 04-05-2011 Comment on above: Description: CANNULA JAGRUTI SCREW Enhance Demin Co rtical Fibers-Large - [id number] Start: 04-23-2013 Comment on above: Description: ENHANCE CORTICAL FIBER Kjo-Io-E-Kind [place] plant - [id number] Start: 04-23-2013 Comment on above: Description: 2.7MM V ARIABLE ANGLE LOCKING SCREW Cwb-Mv-P-Kind [employer] plant - [id number] Start: 04-23-2013 Comment on above: Description: 1.6MM C OMPRESSION WIRES Pmf-Ug-H-Kind [employer] plant - [id number] Start: 04-23-2013 Comment on above: Description: 2.7MM C ORTEX SCREW Itv-Ad-P-Kind [employer] plant - [id number] Start: 04-23-2013 Comment on above: Description: CLAW PL ATE Fqm-Lg-Z-Kind Im plant - [id number] Start: 04-23-2013 Comment on above: Description: LOCKING SCREW Qis-Bo-V-Kind Im plant - [id number] Start: 04-23-2013 Comment on above: Description: LOCKING SCREW Pqk-Bg-S-Kind Im plant - [id number] Start: 04-23-2013 Comment on above: Description: CLAW PL ATE Zrs-Co-V-Kind Im plant - [id number] Start: 04-23-2013 Comment on above: Description: LOCKING SCREW Aps-Jg-W-Kind Im plant - [id number] Start: 04-23-2013 Comment on above: Description: LOCKING SCREW Dcq-Lo-Z-Kind Im plant - [id number] Start: 04-23-2013 Comment on above: Description: PLATE T ACK Ehk-Ue-O-Kind Im plant - [id number] Start: 04-23-2013 Comment on above: Description: FUSION PLATE Plate Std Dl Ma xlock Mtp Lt - [id number] Start: 04-05-2011 Comment on above: Description: MTP JOELLE TE STANDARD NARROW Screw Bn 4mm 10m m Maxlock - [id number] Start: 04-05-2011 Comment on above: Description: NON-LOC VERENICE SCREW Screw Bn 4mm 14m m Nlckg - [id number] Start: 04-05-2011 Comment on above: Description: NON-LOC VERENICE SCREW Screw Bn 4mm 22m m Maxlock - [id number] Start: 04-05-2011 Comment on above: Description: NON-LOC VERENICE SCREW Screw Bn 4mm 20m m Nlckg - [id number] Start: 04-05-2011 Comment on above: Description: NON-LOC VERENICE SCREW Screw Bn 3.5mm [address] Lck - [id number] Start: 04-05-2011 Comment on above: Description: LOCKING Screw Bn 3.5mm 1 4mm Roque Lck - [id number] Start: 04-05-2011 Comment on above: Description: LOCKING Screw Bn 4mm 30m m Nlckg - [id number] Start: 04-05-2011 Comment on above: Description: NON LOC K Screw Bn 4mm 18m m Nlckg - [id number] Start: 04-05-2011 Comment on above: Description: NON-LOC VERENICE SCREW Screw Bn 2.7mm 2 6mm Lcp Ss - [id number] Start: 04-23-2013 Comment on above: Description: 2.7MM C ORTEX SCREW Screw Bn 2.7mm 1 2mm Lcp Ss - [id number] Start: 04-23-2013 Comment on above: Description: 2.7MM C ORTEX SCREW Stpl Bn Cmpr 20x 20mm Ss Orth - [id number] Start: 04-05-2011 Comment on above: Description: STAPLE Stpl Bn Cmpr 15x 15mm Ss Orth - [id number] Start: 04-23-2013 Comment on above: Description: STAPLE LEAD TINED QUADRIPOLAR FDA St art: 08-26-2018 NEUROSTIMULATOR INTERSTIM II FDA Start: 08-26-2018 LEAD TINED QUADRIPOLAR FDA St art: 08-26-2018 NEUROSTIMULATOR INTERSTIM II FDA Start: 08-26-2018 LEAD TINED QUADRIPOLAR FDA St art: 08-26-2018 NEUROSTIMULATOR INTERSTIM II FDA Start: 08-26-2018 LEAD TINED QUADRIPOLAR FDA St art: 08-26-2018 NEUROSTIMULATOR INTERSTIM II FDA Start: 08-26-2018 LEAD TINED QUADRIPOLAR FDA St art: 08-26-2018 NEUROSTIMULATOR INTERSTIM II FDA Start: 08-26-2018 Goals Date Patient Goal Desired Activity /State Functional Status Date Assessment Result Facility 01-17-2023 Functional Status No [facility] Clinical Notes 12-07-2020 to 04-04-2023 Angelita Coulter, PT - 04/04/2023 9:30 AM ESTNiccarlotta Coulter, PT - 04/01/2023 12:00 PM EST Note Date & Type Note Facility 04-04-2023 History of Present illness Narrative Physical Therapy Physical Therapy Treatment Visit Patient Name: Melva De La Rosa Today's Date: 04/04/2023 Encounter Diagnoses Name Primary? Primary localized osteoarthritis of right knee Yes Status post total knee replacement, right Visit number: 14 Supervised time: 40 minutes Total time: 60 minutes Precautions: R TKA precautions DOS 01/30/23 Subjective Pain: Pt. Reports stiffness in knee that is Overall progress: Improving. Pt. Is nearing 9 weeks post op. Pt. Presents today ambulating w/o use of spc. Objective: AROM R knee extension: 0 degree AAROM R knee flexion with strap assist: 123 degrees Gait: Ambulating w/o minimal heel strike R w/ knee flexion present during stance phase. Decreased R stance time, stride length L d/t weakness of R quad. R lateral trunk lean and excessive trunk mobility present during gait, lacking reciprocal arm swing w/ high guard w/ R UE during swing phase. Strength: R quad 4-/5, able to complete SLR w/o lag R hamstring 4-/5 Treatment: Therapeutic Exercise: per flow sheet x 15 minutes supervised, 10 minutes unsupervised Gait Training: v.c w/ treadmill walking, level surface walking to increase KE during stance phase, lengthen stride x 15 minutes Therapeutic Activities: per flow sheet for functional strengthening, stability of R knee during ambulation x 10 minutes Modalities: Ice x 10' post session to R knee to decrease inflammation and pain. Assessment: Pt. Continues w/ difficulty achieving TKE to maintain stability of R knee during WB and causing abnormal gait quality. Attempted to add treadmill to increase stride and clarissa however pt. Struggled to achieve KE at heel strike and throughout stance phases of gait B. Pt. Demonstrated increase in soreness w/ attempts to correct gait quality. . Pt. Will benefit from continued emphasis on R LE strength and TKE actvities. Plan: Chely De La Rosa will benefit from physical therapy 2-3 times per week for 4 weeks per plan of care. documented in this encounter [facility] 04-01-2023 History of Present illness Narrative Physical Therapy Physical Therapy Treatment Visit Patient Name: Melva De La Rosa Today's Date: 04/01/2023 Encounter Diagnoses Name Primary? Primary localized osteoarthritis of right knee Yes Status post total knee replacement, right Visit number: 13 Supervised time: 40 minutes Total time: 60 minutes Precautions: R TKA precautions DOS 01/30/23 Subjective Pain: Pt. Has minimal c/o soreness or stiffness present in R knee today, however does not report adverse pain after weaning from use of spce Overall progress: Improving. Pt. Is nearing 9 weeks post op. Pt. Presents today ambulating w/o use of spc. Objective: AROM R knee extension: 0 degree AAROM R knee flexion with strap assist: 123 degrees Gait: Ambulating w/o minimal heel strike R w/ knee flexion present during stance phase. Decreased R stance time, stride length L d/t weakness of R quad. R lateral trunk lean and excessive trunk mobility present during gait, lacking reciprocal arm swing w/ high guard w/ R UE during swing phase. Strength: R quad 4-/5, able to complete SLR w/o lag R hamstring 4-/5 Treatment: Therapeutic Exercise: per flow sheet x 15 minutes supervised, 10 minutes unsupervised Bike Therapeutic Activities: per flow sheet for functional strengthening, stability of R knee during ambulation x 25 minutes Modalities: Ice x 10' post session to R knee to decrease inflammation and pain. Assessment: Pt. Continues w/ difficulty achieving TKE to maintain stability of R knee during WB and causing abnormal gait quality. Pt. Demonstrated increase in soreness w/ progression of closed chain activities. Continues to lack L stride length d/t apprehension in SL for too long while in R stance time. Pt. Will benefit from continued emphasis on R LE strength and TKE actvities. Plan: Chely De La Rosa will benefit from physical therapy 2-3 times per week for 4 weeks per plan of care. documented in this encounter [facility] 01-31-2023 Note CRM entered the room to discuss dc planning. PCP, DME and insurance discussed. Patient is alert and involved in plan of care. Contac information provided and whiteboard updated. Pt's will transport. Pt will dc today with [facility] and [facility]. LIAO form discussed, copy provided. [facility] Comment on above: Result Comment: Elec tronically Signed By: Aileen Thornton\Date and Time Signed: 01/31/23 09:18 EST 01-31-2023 Note Patient: JN DE LA ROSA Age: 73 years Sex: Female : 1950 Associated Diagnoses: None Author: Bishnu June DO Discharge Information Discharge Summary Information: Admit Date/Time: 01/30/23 05:59 Discharge Date/Time: 01/31/23 07:08 Admitting Physician: Bishnu June DO Referring Physician for Admission: Bishnu June DO Consulting Physicians: none Admitting Diagnoses: DJD right knee procedure: R TKA discharge disposition: home Discharge Diagnoses: Unilateral primary osteoarthritis, right knee Prescription and Home Meds: Non-Formulary Medication (5-HT 100mg) 1 tab, Oral, Daily Non-Formulary Medication (Non-Formulary Medication) 1 Oral BID, Start: 01/31/2023, 0 Refill(s) acetaminophen-oxycodone (Percocet 5 mg-325 mg oral tablet) See Instructions, 1-2 tab(s) Oral q4hr, 40 tab(s), 0 Refill(s) aspirin (aspirin 81 mg Oral EC Tab) 162 mg, 2 tab(s), Oral, Daily, for 30 day(s), 60 tab(s), 0 Refill(s) busPIRone (busPIRone 15 mg Tab) 15 mg, 1 tab(s), Oral, BID, 0 Refill(s) calcium-vitamin D (calcium-vitamin D 600 mg-200 intl units oral capsule) 1 cap(s) Oral Daily, Start: 01/31/2023, 0 Refill(s) celecoxib (CeleBREX 100 mg Cap) 100 mg, 1 cap(s), Oral, BID, PRN: for pain, 60 cap(s), 0 Refill(s) cephalexin (Keflex 500 mg Cap) 500 mg, 1 cap(s), Oral, q8hr, for 7 day(s), 21 cap(s), 0 Refill(s) cholecalciferol (Vitamin D3) 3,000 unit(s), Oral, Daily, 0 Refill(s) chondroitin-glucosamine (Chondroitin-Glucosamine oral tablet) 1 tab, Oral, BID, 0 Refill(s) docusate (Colace 100 mg Cap) 100 mg, 1 cap(s), Oral, BID, PRN: for constipation, 20 cap(s), 0 Refill(s) famotidine (famotidine 20 mg Tab) 20 mg, 1 tab(s), Oral, BID, 0 Refill(s) guaifenesin (Mucinex 600 mg Tab-ER) 600 mg 1 tab(s) Oral q12hr, Start: 01/31/2023, 0 Refill(s) melatonin (melatonin 5 mg oral tablet) 5 mg, 1 tab(s), Oral, Once a day (at bedtime), PRN: for insomnia, 60 tab(s), 0 Refill(s) multivitamin with minerals (Multivitamins and Minerals) 1 tab, Oral, Daily, 0 Refill(s) oxybutynin (oxybutynin 15 mg ER Tab) 15 mg, 1 tab(s), Oral, Daily, 0 Refill(s) tramadol (traMADOL 50 mg Tab) 50 mg 1 tab(s) Oral Daily, Start: 01/31/2023, 0 Refill(s) zinc gluconate (zinc gluconate 50 mg oral tablet) See Instructions, 0 Refill(s) [facility] Comment on above: Result Comment: Elec tronically Signed By: Bishnu June DO\.br\Date and Time Signed: 01/31/23 07:09 EST 01-30-2023 Note PT Evaluation comple jagruti with an AMPAC score of 16/24. Pt was able to perform bed mobility and transfers with CGA. Pt was able to ambulate with FWW with CGA as well. Will continue to follow with recommendations to follow on POD # 1 [facility] 01-29-2023 Note [id number] [facility] 08-08-2022 Evaluation note Encounter Date Diagnosis Assessment Notes Jul, Dysphagia (ICD-10 - R13.10) [employer] Other 05-31-2023 NotePROCEDURE: XR FOOT RT MIN 3 VIEWS DATE: 07/18/2022 8:21 AM CDT COMPARISONS: 04/04/2022 CLINICAL INDICATION: Pain in right foot FINDINGS: There is again evidence of surgical fusion of the first, second and third tarsal-metatarsal joints and the navicular-cuneiform joints. Postop changes remain stable There is again evidence of surgical fusion of the first metatarsal phalangeal joint.. Postop changes remain stable. There is bone demineralization, stable. IMPRESSION: Right foot radiographs show no evidence of acute abnormalities. Extensive postop changes, stable. Electronically authenticated by: FRED GILES Date: 2022-07-18 09:49[id number] Evaluation note* Encounter Date Diagnosis Assessment Notes Treatment Notes Treatment Clinical Notes May, Dysphagia (ICD-10 - R13.10) [employer] Other 04-06-2023 Evaluation note* Encounter Date Diagnosis Assessment Notes Treatment Notes Treatment Clinical Notes May, Dysphagia (ICD-10 - R13.10) [employer] Other 02-15-2023 NotePROCEDURE: XR FOOT RT MIN 3 VIEWS HISTORY: Pain in right foot COMPARISON: XR foot right 02/27/2022 FINDINGS: BONES:Mechanical fusion of the first, second, and third tarsal-metatarsal joints and the navicular-cuneiform joints. Fusion of the first metatarsophalangeal joint via dorsal plate and screws. Prior resection of head of fifth proximal phalanx. No appreciable hardware fracture or loosening. Mild flattening of plantar arch. Large calcaneal plantar spur. SOFT TISSUES:No visible soft tissue swelling. EFFUSION:None visible. OTHER: Negative. IMPRESSION: 1. Stable surgical changes without evidence of hardware failure or change in alignment. Electronically authenticated by: AISHWARYA STEIN Date: 2022-04-04 09:47[facility]01-10-2023 NotePROCEDURE: XR FOOT RT MIN 3 VIEWS COMPARISON: 01/23/2022 HISTORY: Pain FINDINGS: BONES:First metatarsal-phalangeal joint fusion. Midfoot forefoot fusion with screws across the first through third tarsometatarsal joints. No acute fracture, dislocation or mechanical failure. Remote resection head of the fifth proximal phalanx. Remote shave osteotomy lateral fifth metatarsal head SOFT TISSUES:Negative. No visible soft tissue swelling. EFFUSION:None visible. OTHER: Negative. IMPRESSION: Stable postsurgical changes with no mechanical failure Electronically authenticated by: BARRETT VASQUEZ Date: 2022-02-27 09:56[facility]12-06-2022 NotePROCEDURE: XR FOOT RT MIN 3 VIEWS HISTORY: Pain in right foot COMPARISON: XR foot right 01/02/2022 FINDINGS: BONES:Mechanical fusion of the first metatarsophalangeal joint via dorsal plate and screws. Fusion of the first through third tarsal-metatarsal joints and navicular bone via multiple lag screws. Marked degenerative changes of the tarsal-metatarsal joints. Large calcaneal plantar spur. SOFT TISSUES:Mild soft tissue swelling; improved. Interval removal of skin abhay. EFFUSION:None visible. OTHER: Negative. IMPRESSION: 1. Stable surgical changes without evidence of hardware failure or change in alignment. Electronically authenticated by: AISHWARYA STEIN Date: 2022-01-23 11:09[facility]11-15-2022 NotePROCEDURE: XR FOOT RT MIN 3 VIEWS HISTORY: Pain in right foot COMPARISON: XR foot right 12/11/2021 FINDINGS: BONES:Mechanical fusion the first metatarsophalangeal joint via dorsal plate and screws. Fusion of the first through third tarsal-metatarsal joints via multiple lag screws and fusion of the navicular bone. Prior resection of the head of the fifth proximal phalanx. Large calcaneal plantar spur. SOFT TISSUES:Circumferential soft tissue swelling with skin abhay dorsal, medial, and lateral to the foot. Cast material has been removed. EFFUSION:None visible. OTHER: Negative. IMPRESSION: 1. Stable surgical changes without evidence of hardware failure or change in alignment. Electronically authenticated by: AISHWARYA STEIN Date: 2022-01-02 15:19[facility]10-24-2022 NotePROCEDURE: XR FOOT RT MIN 3 VIEWS HISTORY: Pain COMPARISON: 12/11/2021 intraoperative images. FINDINGS: BONES:Mechanical fusion of the first metatarsophalangeal joint via dorsal plate and screws. Mechanical fusion of the first, second, third tarsal-metatarsal joint via lag screws. No evidence of hardware fracture or loosening. Large degenerative calcaneal plantar spur. SOFT TISSUES:Expected postoperative findings. Numerous skin abhay dorsal, medial, and lateral to the foot. EFFUSION:None visible. OTHER: Negative. IMPRESSION: 1. No evidence of hardware failure or change in alignment compared to intraoperative images. Electronically authenticated by: AISHWARYA STEIN Date: 2021-12-11 19:50[facility]10-24-2022 NotePROCEDURE: XR FOOT RT 2V HISTORY: Pain COMPARISON: XR foot right 12/05/2021 FINDINGS: BONES:Multiple intraoperative spot fluoroscopic images demonstrate fusion of the first through third tarsal-metatarsal joints as well as straightening and fusion of the first metatarsophalangeal joint. SOFT TISSUES:Expected intraoperative findings. EFFUSION:None visible. OTHER: Negative. IMPRESSION: 1. Intraoperative mechanical fusion of the first through third tarsal-metatarsal joints and the first metatarsophalangeal joint. Electronically authenticated by: AISHWARYA STEIN Date: 2021-12-11 19:44[facility] [id number] Evaluation note* Encounter Date Diagnosis Assessment Notes Treatment Notes Treatment Clinical Notes Nov, Encounter for immunization (ICD-10 - Z23) Patient presents today for COVID-19 vaccination booster. Patient pre-vaccination form answers reviewed. Patient denies current illness or allergic reaction to any component of a COVD-19 vaccine. Patient provided with copy of current EUA. [employer] Other 09-[facility]-2022 [facility] NoteHISTORY: Bone density screening. COMPARISON: None. PROCEDURE: Imaging of the lumbar spine and bilateral hips was obtained for bone density evaluation. FINDINGS: REGION BMD (g/cm??) YOUNG ADULT T-SCORE AGE-MATCHED Z-SCORE LEFT NECK 0.668 -1.6 0.2 RIGHT NECK 0.677 -1.5 0.3 Right forearm 1/3 0.660 -0.6 1.6 The mean BMD and corresponding T-score listed above indicates: Osteopenia and places the patient at a mild to moderate increased risk for fracture. There may be a future risk of developing osteoporosis. Recommend follow-up exam in 1 year, sooner as clinically necessary. Comment: The T-score is the primary focus of the interpretation of a patient???s bone mineral density measurement. The T-score is the number of standard deviations and individual is above or below the mean value for a young female having normal bone mass. The WHO defines osteoporosis based on the T-score value: +1.0 to -0.9 : Normal bone mass -1.0 to -2.5 : Osteopenia and thus may be at future risk of fracture. -2.6 to -5.0 : Osteoporosis and at significantly increased risk of fracture. IMPRESSION: OSTEOPENIA : ONE YEAR FOLLOW-UP RECOMMENDED Report reported and signed by Pina George on 09/18/2021 0924[facility]* Encounter Date Diagnosis Assessment Notes Treatment Notes Treatment Clinical Notes Mar, Dysphagia (ICD-10 - R13.10) Reassurance Patient to call if symptoms return or worsen Continue Buspar 15mg bid Mar, Hiatal hernia (ICD-10 - K44.9) Mar, Schatzki's ring (ICD-10 - Q39.4) Mar, Erosive esophagitis (ICD-10 - K22.10) [employer] Other 01-20-2022 Evaluation note* Encounter Date Diagnosis Assessment Notes Treatment Notes Treatment Clinical Notes Feb, Ineffective esophageal motility (ICD-10 - K22.4) [employer] Other 11-09-2021 Evaluation note* Encounter Date Diagnosis Assessment Notes Treatment Notes Treatment Clinical Notes Dec, Encounter for immunization (ICD-10 - Z23) Patient presents for COVID-19 vaccination BOOSTER. Pre-screening form answers evaluated with patient. Patient denies current illness or allergic reaction to component of COVID-19 vaccine. Patient provided with current copy of EUA. [employer] Other 10-20-2021 Evaluation note* Encounter Date Diagnosis Assessment Notes Treatment Notes Treatment Clinical Notes Nov, Ineffective esophageal motility (ICD-10 - K22.4) Increase Buspar to 15mg bid EGD [employer] Other Evaluation + Plan note Future Appointments Appointment Date:01/30/2023 09:15:00 AM Scheduled Provider: Location:[facility] Diagnosis Osteoarthritis of foot- Primary Osteoarthrosis, unspecified whether generalized or localized, ankle and foot [facility] noteNo assessment information availableGenesis Hospital Work Phone: Evaluation note* Diagnosis Primary localized osteoarthritis of right knee- Primary Status post total knee replacement, right documented [facility]* Diagnosis Primary localized osteoarthritis of right knee- Primary Status post total knee replacement, right [facility] HealthcareHistory general Narrative - Reported* Type Description Date Medical History spinal stenosis Medical History degenerative disc disease Surgical History lumbar fusion 2003 and 2009 Surgical History carpal tunnel release bilateral hands 2006 Surgical History interstim implant urine 2012 Surgical History colonoscopy Surgical History arthroscopy shoulder left Surgical History Lumbar facet medial branch abla tion L3 L4 L5 04/2018 Surgical History hysterectomy 04/30/2019 Hospitalization History see above [employer] Other Hospital course Narrative No data available for this section [facility] No data available for this section [facility] No data available for this section [facility] Chief Complaint and Reason for Visit Chief Complaint M79.671 right foot arthritis Chief Complaint M79.671 right foot arthritis Dysphagia Dysphagia Chief Complaint right foot arthritis Dysphagia Dysphagia Vaccine Chief Complaint J06.9 J06.9 Z12.31 Family History No Family History Records Found Relationship Condition Age at Onset Recorded Date/T brown father Multiple sclerosis Unknown Chronic obstructive pulmonary disease Unk nown sister Multiple sclerosis Unknown Not Specified Heart disease Unknown Dementia Unknown Advance Directives No Advanced Directives Records Found Advance Directive Response Recorded Date/ Time Advance Directives Yes December 01, 2016 9:15am Summary Purpose Additional Source Comments Source Comments (unrecognize d section and content) In the event this informatio n is protected by the Federal Confidentiality of Alcohol and Drug Abuse Patient Records regulations: The Federal rules restrict any use of the information to criminally investigate or prosecute any alcohol or drug abuse patient.[facility] the event this information is protected by the Federal Confidentiality of Alcohol and Drug Abuse Patient Records regulations: The Federal rules restrict any use of the information to criminally investigate or prosecute any alcohol or drug abuse patient.[facility] Reason for Visit (unrecogniz ed section and content) Reason Comments Refill Request Specialty Diagnoses / Procedures Referred By Demarco t Referred To Contact Physical Therapy Diagnoses Aftercare following joint replacement surgery Presence of right artificial knee joint Procedures ME PHYS THERAPY EVALUATION Bishnu June, DO [address] [place] [address] Angelita Coulter, PT [address] [place] [address] [place] [address] Referral ID Status Reason Start Date Expiration Date V isits Requested Visits Authorized [id number] Authorized 02/19/2023 08/18/2023 30 30 Care Teams (unrecognized sec tion and content) Team Status: Inactive Member Role Status Dates Chaitanya Boss DO Primary Care Provider Active Yazan Zurita DPM MS Attending Provider Active Team Status: Active Member Role Status Dates Chaitanya Boss DO Primary Care Provider Active Team Status: Inactive Member Role Status Dates Chaitanya Boss DO Primary Care Provider Active Kevon Queen MD Attending Provider Active Team Status: Inactive Member Role Status Dates Chaitanya Boss DO Primary Care Provider Active Ra Brown MD Attending Provider Active Team Status: Inactive Member Role Status Dates Chaitanya Boss DO Primary Care Provider Active Shaka Watkins DO Attending Provider Active Team Status: Inactive Member Role Status Dates Chaitanya Boss DO Primary Care Provider Active Elena Curtis PA-C Attending Provider Active Keno Dealer Relationship Specialty Start Date End Date Antonio Boss, DO PCP - General Family Medicine 07/11/22 Antonio Boss DO [address] [place] [address] PCP - ACO Reach 07/12/22 Keno Dealer Relationship Specialty Start Date End Date Antonio Boss DO PCP - General Family Medicine 07/11/22 Antonio Boss DO [address] [place] [address] PCP - ACO Reach 07/12/22 Keno Dealer Relationship Specialty Start Date End Date Antonio Boss DO PCP - General Family Medicine 07/11/22 Antonio Boss, DO [address] [place] [address] PCP - ACO Reach 07/12/22 Keno Dealer Relationship Specialty Start Date End Date Antonio Boss DO PCP - General Family Medicine 07/11/22 Antonio Boss, DO [address] [place] [address] PCP - ACO Reach 07/12/22 Goals (unrecognized section and content) Goals may be documented in a n alternate section INFORMATION SOURCE (unrecogn ized section and content) DATE CREATED AUTHOR 06/30/2022 [facility] Specialist DATE CREATED AUTHOR AUTHOR'S ORGANIZ ATION 07/27/2022 [facility] DATE CREATED AUTHOR AUTHOR'S ORGANIZ ATION 02/16/2023 [facility] DATE CREATED AUTHOR AUTHOR'S ORGANIZ ATION 05/17/2023 [facility] DATE CREATED AUTHOR AUTHOR'S ORGANIZ ATION 05/20/2023 [facility] FOR RECORDS PERTAINING TO PATIENTS WHO ARE OR HAVE BEEN ENROLLED IN A CHEMICAL DEPENDENCY/SUBSTANCEABUSE PROGRAM, SOME INFORMATION MAY BE OMITTED. This clinical summary was aggregated from multiple sources. Caution should be exercised in using it in the provision of clinical care. This summary normalizes information from multiple sources, and as a consequence, information in this document may materially change the coding, format and clinical context of patient data. In addition, data may be omitted in some cases. CLINICAL DECISIONS SHOULD BE BASED ON THE PRIMARY CLINICAL RECORDS. [facility] [employer] provides no warranty or guarantee of the accuracy or completeness of information in this document.
== END 2023-06-04 09:48 | disposition home or self-care (01) ==
LOC: EC 09:47
PROVIDERS: Visit Provider Podiatrist Foot & Ankle Surgery
DX: M20.21 Hallux rigidus, right foot (principal); Z98.890 Other specified postprocedural states
CPT/HCPCS: 73630

== ENCOUNTER 2024-08-14 09:12 | Outpatient (OUT) | payer MEDICARE, OTHER, SELFPAY ==
--- NOTE | 2024-08-14 09:19 | XR_ITS ---
The [address] [address] Patient Name: SANDOR DE LA ROSA MRN: [id number] date: 1950 Sex: F Assigned Patient Location: [facility] Current Patient Location: [facility] Accession/Order Number: [id number] Exam Date: 08/14/2024 10:14 Report Date: 08/14/2024 10:17 At the request of: YAZAN ZURITA DPM Procedure: XR foot RT min 3V RIGHT FOOT - 3 views CLINICAL DATA: Chronic right foot pain. Previous surgery. COMPARISON: 06/04/2023 Weightbearing AP, lateral and oblique views were obtained. The bony structures are osteopenic. There is redemonstration of fusion at the first metatarsal phalangeal joint with plate and multiple screws. There is also fusion of the first through third tarsometatarsal joints where multiple screws are again seen. The hardware is unchanged. There is minor chronic deformity at the head of the fifth metatarsal. There is no developing fracture or dislocation. Degenerative changes are again seen at the distal interphalangeal joint of the first toe and tarsometatarsal joints. There are posterior and plantar calcaneal spurs. There are no significant soft tissue abnormalities. XR/XR foot RT min 3V IMPRESSION: OSTEOPENIA WITH POSTOPERATIVE AND DEGENERATIVE CHANGES SIMILAR TO THE PRIOR Impression dictated by: Erica Pérez M.D. 08/14/2024 10:17 AM Dictation Location: [place] [address] Electronically authenticated by: [id number] Y Date: 08/14/2024 10:17
== END 2024-08-14 09:13 | disposition home or self-care (01) ==
LOC: RAD 09:15
PROVIDERS: PCP Family Medicine; Visit Provider Podiatrist Foot & Ankle Surgery
DX: M79.604 Pain in right leg (principal); M85.88 Other specified disorders of bone density and structure, other site; M77.31 Calcaneal spur, right foot
CPT/HCPCS: 73630